=== PATIENT | female | born 1955 | race Caucasian/White ===

== ENCOUNTER 2021-09-26 20:43 | Emergency (ER) | payer MEDICARE, SELFPAY ==
[2021-09-26 20:48] VITALS: BP 154/91; PULSE 98; RESP 18; TEMP 37; O2SAT 96
[2021-09-26 20:52] VITALS: BP 154/91; PULSE 98; RESP 18; TEMP 37; O2SAT 96
[2021-09-26 22:30] VITALS: BP 138/85; PULSE 81; RESP 19; O2SAT 96
[2021-09-26 23:30] VITALS: BP 136/59; PULSE 72; RESP 14; O2SAT 97
[2021-09-26 23:32] LABS: D Dimer 0.71 ug/mL (<0.48)
[2021-09-27] MEDS: ENOXAPARIN 120 MG/0.8 ML SYRINGE SUB-Q (00:18)
[2021-09-27 00:31] VITALS: BP 140/55; PULSE 72; RESP 14; O2SAT 97
[2021-09-27 00:35] VITALS: BP 121/66
--- NOTE | 2021-09-27 02:02 | ED.EXTPRO ---
HPI - Extremity Problem General Chief complaint: Extremity Problem,Nontraumatic Stated complaint: LLE swelling Time Seen by Provider: 09/26/21 22:15 History of Present Illness HPI Narrative: Patient states that she had noted some swelling in her left leg earlier today when she noticed she could not fit it in her sandal, she is also endorsing some swelling to the back of her knee. Denies any recent trauma, no history of clots, not endorsing much pain. No swelling of the other leg. No chest pain or difficulty breathing. Related Data Allergies Allergy/AdvReac Type Severity Reaction Status Date / Time No Known Allergies Allergy Mild Verified 09/26/21 22:18 Review of Systems Review of Systems: All systems reviewed & are unremarkable except as noted in HPI and below PMFSH Family History Family History Other Family history of cardiovascular disease Family history of malignant neoplasm Social History Social History Smoking status: Never smoker Alcohol intake: current Exam Narrative: EXAMINATION OF ORGAN SYSTEMS/BODY AREAS: Constitutional: Vital signs per nursing GENERAL:[No acute distress, non-toxic appearing.] HEAD: Normal with no signs of head trauma. EYES: EOMI, conjunctiva normal ENT: Hearing grossly intact LUNGS: Nonlabored breathing. HEART: [Regular rate and rhythm] ABD: [Soft], nondistended EXT: Normal range of motion, small area of erythema and tenderness back of left knee, noticeable swelling of left lower extremity especially of the left foot compared to right. DP pulses intact SKIN: Described above NEURO: [Alert and oriented x 3. No gross focal sensory or strength deficits.] PSYCH: Normal affect Course Course Emergency Course: 66-year-old female presents here with swelling of left lower extremity, vital stable, exam shows small area of erythema to the left knee that looks consistent with a insect bite, and increased swelling to the left lower extremity most noticeably in the left foot. Differential includes cellulitis, DVT. D-dimer obtained here is mildly elevated, I have low concern for infection at this time without any fevers, no tenderness to palpation of the areas in question, she is given a shot of Lovenox here and should follow-up for DVT ultrasound in the morning. I updated her primary care doctor. Patient agreeable this plan. Vital Signs Vital signs: Vital Signs Temperature 98.6 F 09/26/21 20:48 Pulse Rate 98 09/26/21 20:48 Respiratory Rate 18 09/26/21 20:48 Blood Pressure 154/91 H 09/26/21 20:48 Pulse Oximetry 96 09/26/21 20:48 Temperature 98.6 F 09/26/21 20:52 Pulse Rate 72 09/27/21 00:31 Respiratory Rate 14 09/27/21 00:31 Blood Pressure 121/66 09/27/21 00:35 Pulse Oximetry 97 09/27/21 00:31 MDM - Extremity (Nontraumatic) Lab Data Labs: Lab Results 09/26/21 Range/Units 23:13 D-Dimer 0.71 H (<0.48) ug/mL Discharge Plan Discharge Clinical Impression: Lower extremity edema Patient Disposition: Home, Self-Care Condition: Stable Instructions: Antibiotic Form, Edema (ED) Follow-up/Referrals: Daniel Ruvalcaba MD [Primary Care Provider] -
== END 2021-09-27 00:35 | disposition home or self-care (01) ==
PROVIDERS: Emergency Provider Emergency Medicine; PCP Family Medicine
DX: R60.0 Localized edema (principal)
CPT/HCPCS: 36415; 85380; 96372; 99283; J1650

== ENCOUNTER 2021-09-27 07:35 | Outpatient (CLI) | payer MEDICARE, SELFPAY ==
--- NOTE | ~2021-09-27 | US_ITS ---
EXAMINATION: US venous doppler [facility] DATE: 09/27/2021 09:01 INDICATION: Left lower limb swelling TECHNIQUE: Vela scale images without and with compression and Doppler images of the left lower extrem ity veins were obtained. COMPARISON: None FINDINGS: The left common femoral vein, profunda femoral vein, femoral vein, popliteal vein, peroneal trunk, posterior tibial veins, and greater saphenous vein are patent. IMPRESSION: 1. Patent left lower extremity veins. No evidence of deep venous thrombosis. Reviewed, dictated and finalized at location A.
== END 2021-09-27 07:36 | disposition home or self-care (01) ==
PROVIDERS: PCP Family Medicine; Visit Provider Family Medicine
DX: R22.42 Localized swelling, mass and lump, left lower limb (principal)
CPT/HCPCS: 93971

== ENCOUNTER → 2021-10-02 12:17 | Outpatient (CLI) | payer MEDICARE, SELFPAY ==
--- NOTE | ~2021-10-02 | XR_ITS ---
EXAMINATION: XR hip LT min 2V DATE: 10/02/2021 13:03 INDICATION: Left hip pain. TECHNIQUE: 2 views of left hip were obtained. COMPARISON: None. FINDINGS: Bone alignment is normal. No fracture. There is severe left hip osteoarthritis. IMPRESSION: 1. Severe left hip osteoarthritis. Reviewed, dictated and finalized at location B.
== END ==
PROVIDERS: PCP Family Medicine; Visit Provider Family Medicine
DX: M16.12 Unilateral primary osteoarthritis, left hip (principal)
CPT/HCPCS: 73502

== ENCOUNTER → 2021-12-04 12:23 | Outpatient (CLI) | payer MEDICARE, SELFPAY ==
--- NOTE | ~2021-12-04 | MM_ITS ---
EXAMINATION: MM screening amado BI w adia HISTORY: Screening TECHNIQUE: Craniocaudal and mediolateral oblique 3-D tomosynthesis images were obtained and synthetic 2-D images were generated. CAD analysis was submitted and interpreted. COMPARISON: Comparison to multiple prior studies sequentially, with oldest reviewed study dated 02/06. BREAST PARENCHYMAL COMPOSITION: Breast composed of scattered areas of fibroglandular density FINDINGS: There is no evidence of suspicious mass, calcification, or architectural distortion to sugg est malignancy in either breast. There has been no suspicious interval change. IMPRESSION: 1. No mammographic evidence of malignancy. 2. Recommend routine screening mammography in one year. BI-RADS Category 1: Negative Reviewed, dictated and finalized at location A.
== END ==
PROVIDERS: PCP Family Medicine; Visit Provider Family Medicine
DX: Z12.31 Encounter for screening mammogram for malignant neoplasm of breast (principal)
CPT/HCPCS: 77063; 77067

== ENCOUNTER 2022-04-14 07:00 | Outpatient (NON) | payer MEDICARE, SELFPAY | END 2022-04-14 07:01 | disposition home or self-care (01) | PROVIDERS: PCP Family Medicine; Visit Provider Internal Medicine Gastroenterology | DX: Z12.11 Encounter for screening for malignant neoplasm of colon (principal); K63.5 Polyp of colon | CPT/HCPCS: 88305 ==

== ENCOUNTER 2022-04-14 08:51 | Day surgery (SDC) | payer MEDICARE, SELFPAY ==
[2022-03-28 11:21] VITALS: BMI 40.3
[2022-04-14 09:35] VITALS: BP 154/83; PULSE 95; RESP 18; TEMP 37.2; O2SAT 97
[2022-04-14] MEDS: LACTATED RINGERS 1,000 ML 150 ML IV CONT (09:49)
--- NOTE | 2022-04-14 09:50 | P.PNAN_ITS ---
Anes - Initial Pre Proc Eval Procedure: Operation Date: 04/14/22 10:45 Proposed Procedures p Screening Colonoscopy - Ethan Ackerman MD Date/Time: 04/14/22 09:50 Surgeon: Ethan Ackerman MD Pre Op Diagnosis: neoplasm screening Patient Data Age: 66 Gender: F Height: 1.73 m Weight: 118.4 kg Last Vital Signs Temp 37.2 C 04/14/22 09:35 Pulse 95 04/14/22 09:35 Resp 18 04/14/22 09:35 BP 154/83 H 04/14/22 09:35 Pulse Ox 97 04/14/22 09:35 O2 Del Method Room Air 04/14/22 09:35 Allergies Allergy/AdvReac Type Severity Reaction Status Date / Time No Known Allergies Allergy Mild Verified 04/14/22 09:35 Home Medications Medication Instructions Recorded Confirmed Type sodium,potassium,mag sulfates 17.5 See Rx Instructions PO .COMPLEX 03/25/22 04/14/22 Rx gram-3.13 gram-1.6 gram oral soln #354 mL (Suprep Bowel Prep Kit) fexofenadine 60 mg tablet 60 mg PO Q12H 03/28/22 04/14/22 History meloxicam 15 mg tablet 15 mg PO DAILY 04/14/22 04/14/22 History Patient hx anesthesia problems: none Family hx anesthesia problems: none Results Review: All pre-operative results and documents have been reviewed as part of the pre- operative evaluation. [facility] Past Medical History Medical History (Updated 04/14/22 @ 09:50 by Johnathon Rudolph MD) Morbid obesity Surgical History Surgical History (Updated 04/14/22 @ 09:51 by Johnathon Rudolph MD) History of cholecystectomy History of tubal ligation Hx of tonsillectomy Family History Family History Other Family history of cardiovascular disease Family history of malignant neoplasm Social History Social History Smoking status: Never smoker Alcohol intake: former Substance use: never Substance use type: does not use Living arrangements: alone Spiritual care concerns: No Anes - Eval Final PreProcedure Day of Procedure 04/14/22 09:50 Patient weight: morbidly obese Heart: regular rate and rhythm Lungs: clear to auscultation Airway: Mallampati scale class II Neurological: alert and oriented Last oral intake: >/= 8 hours ASA classification: III Emergent: no Anesthetic plan: proceed Anesthesia type and monitoring: general GIVS and standard monitoring Results Review: All pre-operative results and documents have been reviewed as part of the pre- operative evaluation. Informed Consent: The patient's anesthetic plan and its attendant risks and benefits were discussed with the patient/family/POA. Questions were solicited and answers provided to the satisfaction of the patient/family/POA.
--- NOTE | 2022-04-14 10:07 | P.HP_ITS ---
History of Present Illness History of Present Illness Consent: Risks, benefits, and alternatives have been discussed and questions answered. Patient agrees to proceed with procedure. Chief complaint: neoplasm screening Narrative: Hayley Wong is a 66 year old female presents for screening colonoscopy. Patient's current weight appetite and bowel movements are normal. Patient denies abdominal pain. She has had no bleeding. Previous colonoscopy in 2007 was unremarkable. Her family history is noncontributory. Review of Systems Review of Systems: Review of systems noncontributory. [facility] Past Medical History Medical History (Updated 04/14/22 @ 10:08 by Ethan Ackerman MD) Morbid obesity Surgical History Surgical History (Updated 04/14/22 @ 09:51 by Johnathon Rudolph MD) History of cholecystectomy History of tubal ligation Hx of tonsillectomy Family History Family History Other Family history of cardiovascular disease Family history of malignant neoplasm Social History Social History Smoking status: Never smoker Alcohol intake: former Substance use: never Substance use type: does not use Living arrangements: alone Spiritual care concerns: No Meds Home Medications and Allergies Home Medications Medication Instructions Recorded Confirmed Type sodium,potassium,mag sulfates 17.5 See Rx Instructions PO .COMPLEX 03/25/22 04/14/22 Rx gram-3.13 gram-1.6 gram oral soln #354 mL (Suprep Bowel Prep Kit) fexofenadine 60 mg tablet 60 mg PO Q12H 03/28/22 04/14/22 History meloxicam 15 mg tablet 15 mg PO DAILY 04/14/22 04/14/22 History Allergies Allergy/AdvReac Type Severity Reaction Status Date / Time No Known Allergies Allergy Mild Verified 04/14/22 09:35 Vital Signs Vital Signs - 24 hr 04/14/22 09:35 Temperature 99 F Pulse Rate 95 Respiratory Rate 18 Blood Pressure 154/83 H Pulse Oximetry 97 Oxygen Delivery Room Air Exam Narrative: Physical exam reveals patient to be alert. Vital signs stable. HEENT exam is unremarkable. Patient is anicteric. Lungs are clear to auscultation and percussion. Heart is without murmur or extra sounds. Abdomen bowel sounds present soft nontender with no organomegaly. Digital external rectal exam is normal. Assessment and Plan Assessment and plan (1) Encounter for screening colonoscopy: Code(s): Z12.11 - Encounter for screening for malignant neoplasm of colon Status: Acute Assessment and Plan: Patient presents for screening colonoscopy. She appears to be at average risk for colon polyps.
[2022-04-14 10:37] VITALS: BP 125/60; PULSE 83; RESP 18; O2SAT 95
[2022-04-14 10:47] VITALS: BP 121/60; PULSE 87; RESP 20; O2SAT 98
--- NOTE | 2022-04-14 10:55 | WPDANESPN ---
Anes - Prog Note Post-Op Date/Time: 04/14/22 10:55 Cardiovascular status: normal Respiratory status: normal Airway patency: baseline Mental status: baseline Post-Op hydration status: normal Vital Signs: Last Vital Signs Temp 37.2 C 04/14/22 09:35 Pulse 87 04/14/22 10:47 Resp 20 04/14/22 10:47 BP 121/60 04/14/22 10:47 Pulse Ox 98 04/14/22 10:47 O2 Del Method Room Air 04/14/22 10:47 Pain Score (VAS): 0/10 I/O: Intake & Output 04/13/22 04/14/22 04/14/22 23:59 07:59 15:59 Intake Total 300 Balance 300 Patient Feedback: Patient satisfied with anesthetic care.
[2022-04-14 10:57] VITALS: BP 130/64; PULSE 73; RESP 20; O2SAT 98
== END 2022-04-14 11:25 | disposition home or self-care (01) ==
PROVIDERS: PCP Family Medicine; Visit Provider Internal Medicine Gastroenterology
PROC: 0DJD8ZZ Inspection of Lower Intestinal Tract, Via Natural or Artificial Opening Endoscopic (ICD-10-PCS; CPT 45378; principal; 2022-04-14 10:45)
DX: Z12.11 Encounter for screening for malignant neoplasm of colon (principal)
CPT/HCPCS: 45385

== ENCOUNTER 2023-03-17 14:03 | Outpatient (CLI) | payer MEDICARE, SELFPAY ==
--- NOTE | ~2023-03-17 | MM_ITS ---
EXAMINATION: MM screening amado BI w adia HISTORY: Screening mammogram, family history of breast cancer in her mother. TECHNIQUE: Craniocaudal and mediolateral oblique 3-D tomosynthesis images were obtained and synthetic 2-D images were generated. CAD analysis was submitted and interpreted. COMPARISON: 12/04/2021, 02/17/2014, 02/16/2013 BREAST PARENCHYMAL COMPOSITION: There are scattered areas of fibroglandular density. FINDINGS: No suspicious mass, calcification, or architectural distortion are identified in either susan ast to suggest malignancy. There has been no suspicious interval change. IMPRESSION: 1. No mammographic evidence of malignancy. 2. Recommend routine screening mammography in one year. BI-RADS Category 1: Negative Reviewed, dictated and finalized at location A.
== END 2023-03-17 14:04 | disposition home or self-care (01) ==
LOC: CHSIMG 14:05
PROVIDERS: PCP Family Medicine; Visit Provider Family Medicine
DX: Z12.31 Encounter for screening mammogram for malignant neoplasm of breast (principal)
CPT/HCPCS: 77063; 77067

== ENCOUNTER 2023-03-26 13:40 | Outpatient (CLI) | payer MEDICARE, SELFPAY ==
--- NOTE | 2023-03-26 13:57 | ECG_ITS ---
Measurements Intervals [place] Rate: 80 P: 83 TN: 212 QRS: 29 QRSD: 96 T: 49 QT: 361 QTc: 418 Interpretive Statements SINUS RHYTHM WITH FIRST DEGREE AV BLOCK BASELINE WANDER- V1, V4 BORDERLINE ECG NO PREVIOUS ECG AVAILABLE FOR COMPARISON Electronically Signed On 03-26-2023 14:06:40 ASSISTANT CLINICAL DIRECTOR by Jeff Morris D.O.
[2023-03-26 14:43] LABS: Basophils Absolute Auto 0.1 K/mm3 (0.0-0.1); Eosinophils Absolute Auto 0.5 K/mm3 (0-0.3); Eosinophils Percent Auto 6.2 % (0-4.4); Hemoglobin 13.5 g/dL (12.0-15.0); Immature Granulocyte Absolute 0.02 K/mm3 (0.00-0.031); Immature Granulocyte Percent A 0.2 % (0-0.5); Lymphocytes Absolute Auto 3.42 K/mm3 (0.9-3.2); Lymphocytes Percent Auto 39.5 % (18.3-44.2); Mean Corpuscular HGB Conc 32.1 g/dl (32-36); Mean Corpuscular Hemoglobin 29.4 pg (26-34); Mean Corpuscular Volume 91.5 fl (80-100); Mean Platelet Volume 11.2 fl (7.4-10.4); Monocytes Absolute Auto 0.6 K/mm3 (0.1-0.6); Monocytes Percent Auto 6.7 % (2.6-8.5); Neutrophils Percent Auto 46.4 % (45.5-73.1); Platelet Count Result 308 k/mm3 (150-375); Red Blood Count 4.59 M/mm3 (4.2-5.4); Red Cell Distribution Width 14.1 % (11.5-14.5); White Blood Count 8.7 K/mm3 (4.5-10.0)
[2023-03-26 14:50] LABS: Anion Gap 9 mmol/L (8-16); Blood Urea Nitrogen 15 mg/dL (7-17); Calcium 9.1 mg/dL (8.4-10.2); Carbon Dioxide 26 mmol/L (22-30); Chloride 106 mmol/L (98-107); Estimated Glomerular Filt Rate > 60; Glucose 106 mg/dL (65-110); Potassium 3.9 mmol/L (3.4-5.0); Sodium 141 mmol/L (137-145)
== END 2023-03-26 13:41 | disposition home or self-care (01) ==
PROVIDERS: PCP Family Medicine; Visit Provider Nurse Practitioner Family
DX: R53.83 Other fatigue (principal); M16.12 Unilateral primary osteoarthritis, left hip; I44.0 Atrioventricular block, first degree
CPT/HCPCS: 36415; 80048; 85025; 93005

== ENCOUNTER 2023-05-26 09:48 | Outpatient (CLI) | payer MEDICARE, SELFPAY ==
[2023-05-26 11:04] LABS: Basophils Absolute Auto 0.1 K/mm3 (0.0-0.1); Basophils Percent Auto 1.1 % (0.2-1.2); Eosinophils Absolute Auto 0.3 K/mm3 (0-0.3); Eosinophils Percent Auto 5.1 % (0-4.4); Hematocrit 43.8 % (37.0-47.0); Hemoglobin 13.6 g/dL (12.0-15.0); Immature Granulocyte Absolute 0.01 K/mm3 (0.00-0.031); Immature Granulocyte Percent A 0.2 % (0-0.5); Lymphocytes Absolute Auto 2.66 K/mm3 (0.9-3.2); Lymphocytes Percent Auto 42.6 % (18.3-44.2); Mean Corpuscular HGB Conc 31.1 g/dl (32-36); Mean Corpuscular Hemoglobin 29.1 pg (26-34); Mean Corpuscular Volume 93.6 fl (80-100); Mean Platelet Volume 10.4 fl (7.4-10.4); Monocytes Absolute Auto 0.4 K/mm3 (0.1-0.6); Monocytes Percent Auto 6.9 % (2.6-8.5); Neutrophils Absolute Auto 2.8 K/mm3 (1.3-6.7); Neutrophils Percent Auto 44.1 % (45.5-73.1); Platelet Count Result 285 k/mm3 (150-375); Red Blood Count 4.68 M/mm3 (4.2-5.4); Red Cell Distribution Width 13.4 % (11.5-14.5); White Blood Count 6.2 K/mm3 (4.5-10.0)
[2023-05-26 11:12] LABS: Appearance Urine Cloudy (Clear); Bacteria Urine 2+ /hpf; Bilirubin Urine Negative (Negative); Blood Urine Negative (Negative); Color Urine Yellow (Yellow); Glucose Urine UA Negative (Negative); Ketones Urine Negative (Negative); Leukocyte Esterase Ur 3+ LEU/UL (Negative); Nitrate Urine Negative (Negative); Non Pathogenic Casts 0-2; Protein Urine Negative (Negative); RBC Urine 0-2 /hpf (0-2); Squamous Epithelial Cell Urine Few /hpf (Few); WBC Urine 21-50 /hpf
[2023-05-26 11:14] LABS: Urine Cotinine NEGATIVE
[2023-05-26 11:15] LABS: INR 0.9; Prothrombin Time 12.7 Seconds (11.1-14.7)
[2023-05-26 11:27] LABS: Add Urine Microscopic? YES
[2023-05-26 11:43] LABS: Hemoglobin A1C 5.9 % (<5.7)
== END 2023-05-26 09:49 | disposition home or self-care (01) ==
PROVIDERS: PCP Family Medicine; Visit Provider Orthopaedic Surgery
DX: Z01.812 Encounter for preprocedural laboratory examination (principal); M16.12 Unilateral primary osteoarthritis, left hip
CPT/HCPCS: 80307; 81001; 83036; 85025; 85610; 85730; 87077; 87081; 87086; 87186

== ENCOUNTER 2023-06-09 01:54 | Day surgery (SDC) | payer MEDICARE, SELFPAY ==
[2023-05-26 10:08] VITALS: BP 147/64; PULSE 80; RESP 16; TEMP 37.3; O2SAT 97; BMI 35.6
--- NOTE | 2023-05-26 10:22 | PC.NURSE ---
Report to the Outpatient Waiting Room, entrance under the green pavilion located off [facility], at time __8:30AM on date __06/09/23 . Planned Procedure Time: __10:30AM . Time changes happen often and if your time is changed the preop area will call you the afternoon before. - You and your visitor will be asked to self-screen and do not enter if you have any COVID symptoms. - A mask is optional within the hospital at this time. Patients may have clear liquids (water, carbonated beverages, clear teas, apple juice) until 3 hours prior to surgery with a maximum of 20 ounces. - No food from midnight until time of surgery. Take the following medications with a SIP of water the morning of surgery: __TRAMADOL NEEDED DO NOT STOP ANY OF YOUR OTHER PRESCRIPTION MEDICATIONS PRIOR TO SURGERY ?EXCEPT THE FOLLOWING Medications to discontinue per physician ____HOLD ALL VITAMINS/SUPPLEMENTS 7 DAYS PRE-OP PER DR STEVENS Date to take last dose___06/01/23 Please no make-up, nail armenian, hairspray, perfume, deodorant, or body powder the day of surgery. No jewelry (including any body piercings) or valuables the day of surgery, leave them at home. Please take a shower or bath the night before, or the morning of, surgery with an antibacterial soap. Wear comfortable, loose fitting clothing. Children are encouraged to wear pajamas. - Jewelry must be removed prior to entering the operating room. Rings and piercings that are not removed may be cut off. - The hospital will not accept responsibility for valuables. - Please leave all valuables, including medications, at home the day of surgery. If you are going home after surgery, a licensed hydraulic lift driver must drive you home. - NO public transportation without another adult if you receive anesthesia. - We recommend that an adult stay with you for 24 hours following discharge. - We also recommend that you do not drive, make important decision, drink alcoholic beverages, or take any drugs that were not prescribed by your health care provider for at least 24 hours after your discharge time. Follow any additional instructions given to you from your surgeon. If you or anyone in your household have experienced Covid symptoms in the past week, please notify your surgeon or the nurse liaison at the phone number below for possible testing. Telephone instructions given to __PATIENT___and asked if any additional questions and then verbalized understanding. Patient advised to call surgeon office or pre surgery nurse liaison [phone] if any additional questions.
--- NOTE | 2023-06-08 15:59 | WPDANESEPPF ---
Anes - Initial Pre Proc Eval Procedure: Operation Date: 06/09/23 10:30 Proposed Procedures p Left Total Hip Arthroplasty - Dayne Paige MD Date/Time: 06/08/23 15:59 Surgeon: Dayne Paige MD Pre Op Diagnosis: Left Hip DJD Patient Data Age: 67 Gender: F Height: 1.7 m Weight: 103.3 kg Last Vital Signs Temp 37.3 C 05/26/23 10:08 Pulse 80 05/26/23 10:08 Resp 16 05/26/23 10:08 BP 147/64 H 05/26/23 10:08 Pulse Ox 97 05/26/23 10:08 O2 Del Method Room Air 05/26/23 10:08 Allergies Allergy/AdvReac Type Severity Reaction Status Date / Time No Known Allergies Allergy Mild Verified 06/09/23 09:25 Home Medications Medication Instructions Recorded Confirmed Type L.acid,leyla-B.bifid,long 70 mg (5 1 tablet PO DAILY 11/10/22 06/09/23 History billion cell) tablet,delayed release (Probiotic Colon Support) ascorbic acid (vitamin C) 500 mg 500 mg PO DAILY 11/10/22 06/09/23 History tablet calcium carbonate 600 mg calcium 600 mg PO DAILY 11/10/22 06/09/23 History (1,500 mg) tablet cholecalciferol (vitamin D3) 25 25 mcg PO DAILY 11/10/22 06/09/23 History mcg (1,000 unit) capsule crzdjlxe-suhu-zpct 8 mg-folic 400 1 tablet PO DAILY 12/10/22 06/09/23 History mcg-K 50 mcg-lutein 300 mcg tablet (Centrum Silver Women) tramadol 50 mg tablet 50 mg PO Q6H PRN pain #30 tabs 04/30/23 06/09/23 Rx chlorhexidine gluconate 4 % 1 applic topical ONCE #237 mL 05/26/23 06/09/23 Rx topical liquid (Hibiclens) fexofenadine 180 mg tablet 180 mg PO DAILY PRN Allergy 05/26/23 06/09/23 History Symptoms Patient hx anesthesia problems: none Family hx anesthesia problems: none Results Review: All pre-operative results and documents have been reviewed as part of the pre-operative evaluation. [facility] Past Medical History Medical History Abnormal liver function tests Obesity (BMI 30.0-34.9) Osteoarthritis of left hip Osteoarthritis of right knee Pure hypercholesterolemia, unspecified Surgical History Surgical History History of cholecystectomy History of tubal ligation Hx of tonsillectomy Family History Family History Other Family history of cardiovascular disease Family history of malignant neoplasm Social History Social History Smoking status: Never smoker Alcohol intake: former Alcohol use details: SOCIAL DRINKER IN PAST, NONE NOW Substance use: never Substance use type: does not use Lack of Transportation: No Lack of Food: Never True Current Housing: I Have Housing Concerned About Future Housing: No Difficulty Paying Gas/Electric Bills: No Difficulty Paying for Meds: No Currently Unemployed: No Education: Associate Degree Difficulty w/ Childcare or Family Care: No Living arrangements: alone Occupation/Education: occupation Gender identity (if verbalized by the patient): Female Sexual Orientation (if Verbalized by the Patient): Straight or Heterosexual Spiritual care concerns: No Anes - Eval Final PreProcedure Day of Procedure 06/08/23 15:59 Patient weight: obese Heart: regular rate and rhythm Lungs: clear to auscultation Airway: Mallampati scale class II Neurological: alert and oriented Last oral intake: >/= 8 hours ASA classification: II Emergent: no Anesthetic plan: proceed Anesthesia type and monitoring: general ETT and standard monitoring Results Review: All pre-operative results and documents have been reviewed as part of the pre-operative evaluation. Informed Consent: The patient's anesthetic plan and its attendant risks and benefits were discussed with the patient/family/POA. Questions were solicited and answers provided to the satisfaction of the patient/family/POA.
[2023-06-09] VITALS (12 sets, daily range): BP systolic 124–151; BP diastolic 51–69; PULSE 67–89; RESP 12–24; TEMP 35.9–37; O2SAT 95–100
--- NOTE | ~2023-06-09 | XR_ITS ---
EXAMINATION: XR hip LT min 2V DATE: 06/09/2023 15:10 INDICATION: Status post left total hip arthroplasty. TECHNIQUE: Anteroposterior and cross-table lateral views of the left hip were obtained. COMPARISON: None. FINDINGS: Noncemented left total hip arthroplasty which appears well seated in near-anatomic alignment. No frac ture. The acetabular component is affixed with at least a single screw. Soft tissues are unremarkable . IMPRESSION: 1. Expected appearance post left total hip arthroplasty. Reviewed, dictated and finalized at location A. BUILDER HELPER
--- NOTE | 2023-06-09 07:14 | WPDHPUPDATE1 ---
History and Physical Update Update Date/Time: 06/09/23 07:14 History and Physical has been reviewed, including an updated exam of the patient. There are NO changes in the patient's condition. Risks, benefits, and alternatives have been discussed and questions answered. Patient agrees to proceed with procedure.
[2023-06-09] MEDS: ACETAMINOPHEN 500 MG TABLET 1000 MG PO (09:00)
[2023-06-09] MEDS: LACTATED RINGERS 1,000 ML 30 ML IV CONT ×2 (09:00→14:52)
[2023-06-09] MEDS: ceFAZolin 2 GM/D5W 50 ML 2 GM/50 ML BAG IVPB ×2 (12:28→21:03)
[2023-06-09] MEDS: TRANEXAMIC ACID 1,000 MG/10 ML AMPUL 1000 MG IV PUSH (14:01)
--- NOTE | 2023-06-09 15:00 | W.PM.PROC2 ---
Procedure Note - Detailed Date of Procedure 06/09/23 Pre-op Diagnosis Left Hip DJD Post-op Diagnosis Same Procedure Performed L LYNDA Surgeon Dayne Paige MD Anesthesia General Description of Procedure THE PATIENT WAS TAKEN TO THE OPERATING ROOM IN STABLE CONDITION AND WAS PLACED IN THE LATERAL DECUBITUS AND THE LEFT LOWER EXTREMITY WAS PREPPED AND DRAPED IN THE STERILE FASHION. INCISION WAS MADE IN THE POSTERIOR LATERAL SIDE OF THE HIP, DOWN TO THE FASCIA LAYER. THE FASCIA WAS INCISED. THE HIP WAS EXPOSED. THE SHORT EXTERNAL ROTATORS WERE EXPOSED. THE SCIATIC NERVE WAS IDENTIFIED. INCISION WAS MADE THROUGH THE SHORT EXTERNAL ROTATORS AND THE CAPSULE OF THE HIP JOINT. THE HIP WAS DISLOCATED. AN OSTEOTOMY WAS MADE TO THE FEMORAL NECK ABOUT 1 CM PROXIMAL TO THE LESSER TROCHANTER. THE ACETABULUM WAS EXPOSED. THERE WAS SEVERE DJD SEEN. BEGINNING WITH A 44 REAMER THE ACETABULUM WAS REAMED TO 49 MM. A 50 MM TRIAL WAS PLACED IN 35 DEG OF ABDUCTION AND ANTEVERSION WAS IN ALIGNMENT WITH THE TRANS ACETABULAR LIGAMENT. THE FIT WAS EXCELLENT. THE TRIAL WAS REMOVED. A 50 MM BIOMET G7 COMPONENT WAS THEN TAPPED IN TO PLACE IN 35 DEG OF ABDUCTION AND ANTEVERSION IN ALIGNMENT WITH THE TRANSVERSE ACETABULAR LIGAMENT. THE FIT WAS EXCELLENT. THE ACETABULAR LINER WAS PLACED AND CHECKED FOR STABILITY. NEXT THE FEMUR WAS PREPARED WITH INITIAL CANAL FINDER THEN SEQUENTIAL BROACHING WITH A TAPERLOC HIP SYSTEM, UNTIL A 10 BROACH FIT WELL IN 15 OF ANTEVERSION. A 0 STANDARD OFFSET NECK WITH 36 MM HEAD TRIAL WAS PLACED. THE SHUCK TEST WAS EXCELLENT AND THE STABILITY IN FLEXION AND ROTATION WAS EXCELLENT. LEG LENGTHS WERE GROSSLY EQUAL. TRIALS WERE REMOVED. A BIOMET TAPERLOC 10 STEM WAS PLACED WITH A STANDARD OFFSET NECK THE FIT WAS EXCELLENT IN 15 DEG OF ANTEVERSION. A 0 CERAMIC 36 MM FEMORAL CERAMIC HEAD WAS PLACED. THE HIP WAS TRIALED AND THE STABILITY WAS EXCELLENT WERE THE LEG LENGTHS AND THE SHUCK TEST. THE WOUND WAS IRRIGATED WITH STERILE BETADINE AND WATER FOR 3 MIN. THEN WASHED AGAIN. THE CAPSULE AND THE EXTERNAL ROTATORS WERE APPROXIMATED WITH NUMBER 1 VICRYL. THE FASCIA WITH No 2 QUIL AND THE SUB CUTANEOUS LAYER WITH 2-0 ABSORBABLE SUTURE WITH A RUNNING 3-0 SUBCUTICULAR LAYER WELL. DERMABOND WAS PLACED AND STERILE DRESSING WAS APPLIED. PATIENT WAS PLACED BACK ON TO THE SUPINE POSITION AND WAS EXTUBATED Estimated Blood Loss 100 Complications No immediate complications Condition Stable Disposition PACU
--- NOTE | 2023-06-09 16:38 | ADMGEN ---
This patient, Hayley Wong, was admitted to [facility] Surg Room 321-02. Patient/family oriented to hospital policies and general routines including ID bracelet, bed and alarms, visiting hours, pain management, procedures, bathroom and other care routines, personal items, smoking policy, room service/diet, and visiting hours. Information on how to activate the Rapid Response Team has been discussed. Patient/Family are encouraged to report perceived risks to care and to ask questions if they do not understand what they are told or what they should do.
[2023-06-09] MEDS: SODIUM CHLORIDE 0.9% IV 1,000 ML 125 ML IV CONT (17:59)
[2023-06-09] MEDS: KETOROLAC 15 MG/ML VIAL (*BKC) IV PUSH (18:00)
[2023-06-09] MEDS: SENNA/DOCUSATE SODIUM TABLET 2 TAB PO (18:00)
[2023-06-09] MEDS: HYDROcodone/acetaminophen (*CRX) 7.5-325 MG TABLET 1 TAB PO (20:59)
[2023-06-09] MEDS: FAMOTIDINE 20 MG TABLET PO (20:59)
[2023-06-09] MEDS: ASPIRIN 325 MG ENTERIC TABLET PO (20:59)
[2023-06-09] MEDS: PROPARACAINE HCL 0.5% 15 ML OPHTH SOLN 1 DROP EACH EYE (21:01)
[2023-06-09] MEDS: DICLOFENAC SODIUM 0.1% OPHTH SOLN 2.5 ML BOTTLE 1 DROP EACH EYE (21:45)
[2023-06-10] MEDS: KETOROLAC 15 MG/ML VIAL (*BKC) IV PUSH ×3 (00:09→11:35)
[2023-06-10 00:25] VITALS: BP 152/62; PULSE 64; RESP 16; TEMP 36.9; O2SAT 93
[2023-06-10] MEDS: HYDROcodone/acetaminophen (*CRX) 7.5-325 MG TABLET 1 TAB PO (05:44)
[2023-06-10] MEDS: DICLOFENAC SODIUM 0.1% OPHTH SOLN 2.5 ML BOTTLE 1 DROP EACH EYE ×2 (05:45→13:06)
[2023-06-10] MEDS: ceFAZolin 2 GM/D5W 50 ML 2 GM/50 ML BAG IVPB ×2 (05:47→12:10)
[2023-06-10 05:56] VITALS: BP 138/62; PULSE 63; RESP 18; TEMP 36.8; O2SAT 94
[2023-06-10 06:31] LABS: Basophils Percent Auto 0.3 % (0.2-1.2); Eosinophils Percent Auto 0.3 % (0-4.4); Hematocrit 35.5 % (37.0-47.0); Hemoglobin 11.1 g/dL (12.0-15.0); Immature Granulocyte Absolute 0.06 K/mm3 (0.00-0.031); Immature Granulocyte Percent A 0.5 % (0-0.5); Lymphocytes Absolute Auto 1.92 K/mm3 (0.9-3.2); Lymphocytes Percent Auto 16.6 % (18.3-44.2); Mean Corpuscular HGB Conc 31.3 g/dl (32-36); Mean Corpuscular Volume 92.7 fl (80-100); Mean Platelet Volume 10.4 fl (7.4-10.4); Monocytes Absolute Auto 0.9 K/mm3 (0.1-0.6); Monocytes Percent Auto 7.3 % (2.6-8.5); Neutrophils Absolute Auto 8.7 K/mm3 (1.3-6.7); Platelet Count Result 248 k/mm3 (150-375); Red Blood Count 3.83 M/mm3 (4.2-5.4); Red Cell Distribution Width 13.2 % (11.5-14.5); White Blood Count 11.6 K/mm3 (4.5-10.0)
[2023-06-10 06:48] LABS: Anion Gap 5 mmol/L (8-16); Blood Urea Nitrogen 20 mg/dL (7-17); Calcium 8.1 mg/dL (8.4-10.2); Carbon Dioxide 30 mmol/L (22-30); Chloride 101 mmol/L (98-107); Estimated CRCL calculation 81 ml/min; Estimated Glomerular Filt Rate > 60; Glucose 120 mg/dL (65-110); Potassium 4.1 mmol/L (3.4-5.0); Sodium 136 mmol/L (137-145)
[2023-06-10] MEDS: CHOLECALCIFEROL 1,000 UNITS TABLET 1000 UNITS PO (08:49)
[2023-06-10] MEDS: ASCORBIC ACID 500 MG TABLET PO (08:49)
[2023-06-10] MEDS: FAMOTIDINE 20 MG TABLET PO (08:49)
[2023-06-10] MEDS: SENNA/DOCUSATE SODIUM TABLET 2 TAB PO (08:56)
[2023-06-10] MEDS: ASPIRIN 325 MG ENTERIC TABLET PO (08:56)
[2023-06-10] MEDS: polyethylene glycoL 3350 17 GM POWD.PACK PO (08:56)
[2023-06-10 09:04] VITALS: BP 124/52; PULSE 70; RESP 18; TEMP 36.3; O2SAT 97
--- NOTE | 2023-06-10 09:27 | P.PNAN_ITS ---
Anes - Prog Note Post-Op Date/Time: 06/10/23 09:27 Cardiovascular status: normal Respiratory status: normal Airway patency: baseline Mental status: baseline Post-Op hydration status: normal Vital Signs: Last Vital Signs Temp 36.3 C L 06/10/23 09:04 Pulse 70 06/10/23 09:04 Resp 18 06/10/23 09:04 BP 124/52 L 06/10/23 09:04 Pulse Ox 97 06/10/23 09:04 O2 Del Method Room Air 06/09/23 16:56 O2 Flow Rate 8 06/09/23 15:05 Pain Score (VAS): 07/25 I/O: Intake & Output 06/09/23 06/10/23 06/10/23 23:59 07:59 15:59 Intake Total 990 50 500 Balance 990 50 500 Laboratory Tests 06/10/23 06:07 06/10/23 06:07 06/09/23 06/10/23 08:43 06:07 WBC 11.6 H RBC 3.83 L Hgb 11.1 L Hct 35.5 L MCV 92.7 MCH 29.0 MCHC 31.3 L RDW 13.2 Plt Count 248 MPV 10.4 Immature Gran % (Auto) 0.5 Neut % (Auto) 75.0 H Lymph % (Auto) 16.6 L [place] % (Auto) 7.3 Eos % (Auto) 0.3 Baso % (Auto) 0.3 Lymph # (Auto) 1.92 [place] # (Auto) 0.9 H Eos # (Auto) 0.0 Baso # (Auto) 0.0 Abs Immat Gran (auto) 0.06 H Absolute Neuts (auto) 8.7 H Absolute Nucleated RBC 0.0 Nucleated RBC % 0.0 Sodium 136 L Potassium 4.1 Chloride 101 Carbon Dioxide 30 Anion Gap 5 L BUN 20 H Creatinine 0.70 Estim Creat Clear Calc 81 Estimated GFR > 60 Glucose 120 H Calcium 8.1 L Blood Type A Positive Antibody Screen Negative Post-procedural complaints: none Patient Feedback: Patient satisfied with anesthetic care.
--- NOTE | 2023-06-10 13:05 | PM.PNORT ---
Progress Note: A&P Assessment and Plan (1) Osteoarthritis of left hip: Qualifiers: Osteoarthritis type: primary Qualified Code(s): M16.12 - Unilateral primary osteoarthritis, left hip Code(s): M16.12 - Unilateral primary osteoarthritis, left hip Status: Acute Assessment and Plan: POD 1 DOING WELL WITH GOOD PROGRESS WITH PT. OK TO DC HOME SHE WILL F/U IN 3 WEEKS. REVIEWED HIP PRECAUTIONS AND DVT PROPHYLAXIS Subjective Subjective Date/Time Seen: 06/10/23 13:05 Interval history: POD 1 DOING WELL. NO CALF PAIN. GOOD PROGRESS WITH PT Exam Extrem: Other: VSS AFEBRILE DRESSING DRY NV INTACT NEG HOMANS SIGN THIGH AND CALF SOFT NON TENDER Objective Data Vital Signs Vital Signs: Vital Signs - 24 hr 06/09/23 14:52 06/09/23 15:05 06/09/23 14:58 Temperature 36.7 C Pulse Rate 79 74 79 Respiratory Rate 12 13 13 Blood Pressure 124/59 L 128/63 129/60 Pulse Oximetry 100 100 100 Oxygen Delivery Simple Face Mask Simple Face Mask Simple Face Mask Oxygen Flow Rate 6 8 8 06/09/23 15:20 06/09/23 15:35 06/09/23 16:05 Temperature Pulse Rate 75 75 74 Respiratory Rate 15 12 24 H Blood Pressure 137/63 137/62 132/57 L Pulse Oximetry 97 100 96 Oxygen Delivery Room Air Room Air Room Air Oxygen Flow Rate 06/09/23 16:56 06/09/23 16:35 06/09/23 16:50 Temperature 35.9 C L 36.1 C L Pulse Rate 67 71 Respiratory Rate 18 16 Blood Pressure 132/51 L 132/59 L Pulse Oximetry 95 95 95 Oxygen Delivery Room Air Oxygen Flow Rate 06/09/23 18:19 06/09/23 21:34 06/10/23 00:25 Temperature 36.1 C L 37.0 C 36.9 C Pulse Rate 79 89 64 Respiratory Rate 18 18 16 Blood Pressure 151/62 H 143/60 H 152/62 H Pulse Oximetry 97 96 93 Oxygen Delivery Oxygen Flow Rate 06/10/23 05:56 06/10/23 09:04 06/10/23 10:59 Temperature 36.8 C 36.3 C L Pulse Rate 63 70 Respiratory Rate 18 18 Blood Pressure 138/62 124/52 L Pulse Oximetry 94 97 Oxygen Delivery Room Air Oxygen Flow Rate Intake/Output Intake/Output: Intake & Output 06/07/23 06/08/23 06/09/23 06/10/23 23:59 23:59 23:59 23:59 Intake Total 1040 600 Balance 1040 600 Meds/Results Medications: Active Medications Generic Name Dose Route Start Last Admin Trade Name Freq PRN Reason Stop Dose Admin Acetaminophen 650 mg 06/09/23 16:11 Acetaminophen 325 Mg Tablet PO Q6H PRN Mild Pain (1-3) or Fever Hydrocodone Bitart/Acetaminophen 1 tab 06/09/23 16:11 06/10/23 05:44 Hydrocodone/Acetaminophen (*Crx) 7.5-325 Mg Tablet PO 1 tab Q3H PRN Administration Pain Rated 4-6 Hydrocodone Bitart/Acetaminophen 2 tab 06/09/23 16:11 Hydrocodone/Acetaminophen (*Crx) 7.5-325 Mg Tablet PO Q6H PRN Pain Rated 7-10 Artificial Tears 1 drop 06/09/23 19:44 Artificial Tears Ophth Soln 15 Ml Bottle EACH EYE Q2H PRN Dry Eye(s) Ascorbic Acid 500 mg 06/10/23 09:00 06/10/23 08:49 Ascorbic Acid 500 Mg Tablet PO 500 mg DAILY JOSEPH Administration Aspirin 325 mg 06/09/23 21:00 06/10/23 08:56 Aspirin 325 Mg Enteric Tablet PO 325 mg Q12HR JOSEPH Administration Calcium Carbonate 600 mg 06/10/23 09:00 06/10/23 08:50 Calcium Carbonate (Tums) 500 Mg (200 Mg Elemental) BY MOUTH Not Given DAILY JOSEPH Diazepam 5 mg 06/09/23 16:11 Diazepam (*Crx) 5 Mg Tablet PO Q6H PRN Anxiety/Muscle Spasm Diclofenac Sodium 1 drop 06/09/23 22:00 06/10/23 05:45 Diclofenac Sodium 0.1% Ophth Soln 2.5 Ml Bottle EACH EYE 06/13/23 21:59 1 drop Q8HR JOSEPH Administration Famotidine 20 mg 06/09/23 21:00 06/10/23 08:49 Famotidine 20 Mg Tablet PO 20 mg Q12HR JOSEPH Administration Hydroxyzine HCl 50 mg 06/09/23 16:11 Hydroxyzine Hcl 25 Mg Tablet PO Q4H PRN Itching Cefazolin Sodium 2 gm in 50 mls @ 100 mls/hr 06/09/23 21:00 06/10/23 12:40 Ancef 2 Gm/D5w 50 Ml IVPB 06/10/23 13:29 Infused Q8H JOSEPH Infusion Ketorolac Tr
--- NOTE | 2023-06-10 13:07 | PM.DS ---
DS: Admitting Diagnosis Discharge Date 06/10/23 Admitting Diagnosis LEFT HIP DJD DS: Discharge Diagnosis Discharge Diagnosis (1) Osteoarthritis of left hip: Qualifiers: Osteoarthritis type: primary Qualified Code(s): M16.12 - Unilateral primary osteoarthritis, left hip Code(s): M16.12 - Unilateral primary osteoarthritis, left hip Status: Acute DS: Summary Hospital Course Reason for hospitalization: LEFT LYNDA Hospital Course: PATIENT WAS ADMITTED S/P TOTAL HIP ARTHROPLASTY FOR POSTOPERATIVE MEDICAL MANAGEMENT, PAIN CONTROL AND MOBILIZATION WITH PHYSICAL AND OCCUPATIONAL THERAPY. THE PATIENT PROGRESSED WELL WITH PT/OT. LABS AND VITALS REMAINED STABLE AND PAIN WELL CONTROLLED. THE PATIENT HAS BEEN CLEARED TO BE DISCHARGED HOME. FOLLOW UP APPOINTMENT SCHEDULED. DISCHARGE INSTRUCTIONS DISCUSSED AT LENGTH WITH THE PATIENT. MEDICATIONS REVIEWED. Status at Discharge Cognitive/behavioral status at discharge: STABLE Time Spent with Patient Time attestation: Total time spent providing and/or coordinating discharge services: DS: Data Data Completed and Pending Labs on day of discharge: Labs from last 24 hours 06/10/23 06:07 WBC 11.6 H RBC 3.83 L Hgb 11.1 L Hct 35.5 L MCV 92.7 MCH 29.0 MCHC 31.3 L RDW 13.2 Plt Count 248 MPV 10.4 Immature Gran % (Auto) 0.5 Neut % (Auto) 75.0 H Lymph % (Auto) 16.6 L [place] % (Auto) 7.3 Eos % (Auto) 0.3 Baso % (Auto) 0.3 Lymph # (Auto) 1.92 [place] # (Auto) 0.9 H Eos # (Auto) 0.0 Baso # (Auto) 0.0 Abs Immat Gran (auto) 0.06 H Absolute Neuts (auto) 8.7 H Absolute Nucleated RBC 0.0 Nucleated RBC % 0.0 Sodium 136 L Potassium 4.1 Chloride 101 Carbon Dioxide 30 Anion Gap 5 L BUN 20 H Creatinine 0.70 Estim Creat Clear Calc 81 Estimated GFR > 60 Glucose 120 H Calcium 8.1 L Procedures/Treatments: LEFT LYNDA Discharge Plan Discharge Patient Disposition: Home Health Service Discharge Instructions: Care Coordination: Patient to have [facility] for PT/OT eval and treat, and group home. They will contact you to schedule their first visit; their phone number is [phone] if you have any questions. HAYDE PAIGE M.D. [facility] [address] [place] [address] POST OPERATIVE DISCHARGE INSTRUCTIONS FOLLOWING TOTAL HIP REPLACEMENT SURGERY ? Your dressing will be changed prior to your discharge. You will be sent home with one additional dressing to be changed on post op day 7 by the home health RN. You may remove the dressing on post op day 14. Your incision was closed with dermabond, allow the dermabond to fall off naturally once your dressing is removed. Do not pull at the dermabond or disrupt incision healing. ? You may shower with your dressing but do not submerge in a bath tub. ? Do not drive or operate machinery until you are released by Dr. Paige. ? Do not walk without a walker for any reason until you are released by Dr. Paige. ? Continue to apply ice to the hip intermittently for additional pain relief. Protect your skin with a towel or pillow case. ? Unless otherwise instructed by Dr. Paige you me be weight bearing as tolerated with your walker. ? Continue to follow strict total hip replacement precautions. ? Your first post op appointment was sent to you via mail preoperatively. If you have any questions or are unable to make your appointment, please contact our office for scheduling questions. ? Your medications have been sent to your pharmacy. You have been sent home with pain medication. We have also sent you with a stool softener as narcotics can cause constipation. Please keep this in mind during your postoperative recovery. If you are not experiencing regular bowel movements, please contact our office for further instruction. ? Please contact our office with any questions regarding your hip at [phone]
== END 2023-06-10 15:30 | disposition home health service (06) ==
LOC: ANHSURGERY 08:30 → ANH3MEDSUR 16:13
PROVIDERS: PCP Family Medicine; Visit Provider Orthopaedic Surgery
PROC: (CPT 27130; principal; 2023-06-09 10:30)
DX: M16.12 Unilateral primary osteoarthritis, left hip (principal); E78.00 Pure hypercholesterolemia, unspecified; E66.9 Obesity, unspecified; Z68.35 Body mass index [BMI] 35.0-35.9, adult
CPT/HCPCS: 27130; 36415; 73502; 80048; 80307; 81001; 83036; 85025; 85610; 85730; 86850; 86900; 86901; 87077; 87081; 87086; 87186; 97110; 97116; 97161; 97165; 97530; 97535; A9270; C1713; C1776; J0171; J0690; J1100; J1170; J1885; J2250; J2270; J2405; J2704; J2795; J3010; J7030; J7120

== ENCOUNTER 2023-08-26 09:00 | Outpatient (RCR) | payer MEDICARE, SELFPAY ==
--- NOTE | 2023-07-13 16:26 | PTOPEVAL1 ---
Assessment and note entered by Carlo Hines, PT Evaluation Information Assessment Status Evaluation Diagnosis Left LYNDA, hip weakness Onset 06/09/23 Subjective Information Reports that she is mostly pain free and has not had to take any pain medication. She is still a little stiff in the AM but this is resolved with ambulation and mobility. No trouble sleeping at night. She lives in a split level home and has been using her cane around the home to help with mobility on stairs. Reported Pain Level Pain Score 0: Self Report Assessment PT Clinical Summary Patient making excellent early progress following home health stent. She is showing some ROM deficits in hip and lateral weakness indicated by gait and single leg activity. Will benefit from skilled therapy to improve gait independence, stability, and gross mobility for greater independence. Plan of Care Interventions Manual Therapy,Neuro Re-education,Therapeutic Activities,Therapeutic Exercise PT Services Indicated Yes Treatment Frequency and 2x/week for 10 visits Duration These treatments will address the objective and functional deficits as defined above. The patient will be advanced safely and appropriately in order for the patient to progress towards his/her prior level of function. Additional exercises will be introduced and as well as a comprehensive home exercise program upon discharge, if needed, ?to ensure carryover of functional gains achieved in the clinic. This treatment plan has been reviewed and agreement upon by the patient.
--- NOTE | 2023-07-13 16:26 | OPREHPOC ---
Outpatient Therapy Plan of Care This is a Multidisciplinary Plan of Care that may contain components documented by all disciplines (PT, OT, and ST.) PT Problem 1 PT Problem #1 Knowledge Deficit PT Goal 1 Goal [place] with HEP Target Visit 4 PT Problem 2 PT Problem #2 Pain PT Goal 1 Goal Report no pain with walking distances greater than 500 feet Target Visit 5 PT Problem 3 PT Problem #3 Impaired Gait PT Goal 1 Goal Ambulate independent of AD with even stride length bilaterally Target Visit 10 PT Goal 2 Goal Demonstrate ability to reciprocally climb stairs independent of AD Target Visit 10 PT Problem 4 PT Problem #4 Impaired Strength PT Goal 1 Goal Improve amanda hip flexion strength to 4+/5 to improve foot clearance bilaterally Target Visit 10 PT Goal 2 Goal Improve amanda hip abduction strength to 4/5 to improve lateral stability with ADLs Target Visit 10
--- NOTE | 2023-08-17 14:05 | PCPTNOTE ---
pt arrived 15 min early for today's reevaluation appt. She did not want to wait 15 minutes, so rescheduled the appt.
--- NOTE | 2023-08-26 09:46 | PTOPDC ---
Assessment and note entered by Sherry Berg, PT Discharge Information Assessment Status Discharge Diagnosis Left LYNDA, hip weakness Onset 06/09/23 Subjective Information therapy has been good--leg is stronger; still watching the hip precautions; is doing everything at home, but not bending over due to hip precautions; have been walking more, shopping; use cane when walking distances; have gym membership; is going to keep up with her exercises when done with therapy. saw the eye dr and going to have cataract surgery- -vision changes are starting to bother her. she agrees to discharge PT services. Reported Pain Level Pain Score 0: Self Report Additional Pain Score Comments no pain in R hip; R knee is giving her pain; sore in R hip with lie on L side Assessment PT Clinical Summary Priscila has received 10 PT sessions. She has improved in all areas since the eval: decrease pain to 0/10; LE functional scale self assessment from 55 to 38% limitation in activity level; gait from wheeled walker to cane or no device; has returned to her normal home and self care, except yard work; increase strength of R hip and indep with HEP. Continues to follow the THR precautions. The goals were met. Discharge PT services. She is to continue with the HEP. Plan of Care PT Services Indicated No
== END 2023-08-26 10:42 | disposition home or self-care (01) ==
LOC: ANHPT 09:00
PROVIDERS: PCP Family Medicine; Visit Provider Orthopaedic Surgery
DX: Z47.1 Aftercare following joint replacement surgery (principal); Z96.642 Presence of left artificial hip joint
CPT/HCPCS: 97110; 97112; 97116; 97140; 97161; 97530

== ENCOUNTER 2024-01-14 10:44 | Outpatient (CLI) | payer MEDICARE, SELFPAY ==
--- NOTE | 2024-01-14 11:11 | ECG_ITS ---
Test Date: 2024-01-14 11:27:08 Measurements Intervals [place] Rate: 67 P: -29 TN: 213 QRS: 37 QRSD: 97 T: 41 QT: 404 QTc: 429 Interpretive Statements SINUS RHYTHM WITH FIRST DEGREE AV BLOCK OTHERWISE WITHIN NORMAL LIMITS No previous ECG available for comparison Electronically Signed On 01-14-2024 13:27:46 CDT by Delta Bolanos M.D.
[2024-01-14 11:43] LABS: Basophils Absolute Auto 0.1 K/mm3 (0.0-0.1); Basophils Percent Auto 1.2 % (0.2-1.2); Eosinophils Absolute Auto 0.2 K/mm3 (0-0.3); Hematocrit 42.4 % (37.0-47.0); Hemoglobin 13.4 g/dL (12.0-15.0); Immature Granulocyte Absolute 0.01 K/mm3 (0.00-0.031); Immature Granulocyte Percent A 0.2 % (0-0.5); Lymphocytes Percent Auto 50.5 % (18.3-44.2); Mean Corpuscular HGB Conc 31.6 g/dl (32-36); Mean Corpuscular Hemoglobin 29.1 pg (26-34); Mean Platelet Volume 10.3 fl (7.4-10.4); Monocytes Absolute Auto 0.4 K/mm3 (0.1-0.6); Monocytes Percent Auto 7.7 % (2.6-8.5); Neutrophils Absolute Auto 2.1 K/mm3 (1.3-6.7); Neutrophils Percent Auto 36.4 % (45.5-73.1); Platelet Count Result 291 k/mm3 (150-375); Red Blood Count 4.61 M/mm3 (4.2-5.4); Red Cell Distribution Width 13.8 % (11.5-14.5); White Blood Count 5.7 K/mm3 (4.5-10.0)
[2024-01-14 11:47] LABS: Add Urine Microscopic? YES; Appearance Urine Clear (Clear); Bacteria Urine None Seen /hpf; Bilirubin Urine Negative (Negative); Blood Urine Negative (Negative); Color Urine Yellow (Yellow); Glucose Urine UA Negative (Negative); Ketones Urine Negative (Negative); Leukocyte Esterase Ur 2+ LEU/UL (Negative); Nitrate Urine Negative (Negative); Non Pathogenic Casts 0-2; Protein Urine Negative (Negative); RBC Urine 0-2 /hpf (0-2); Squamous Epithelial Cell Urine Few /hpf (Few); pH Urine 5.5 (5.0-9.0)
== END 2024-01-14 10:45 | disposition home or self-care (01) ==
LOC: ANHLAB 10:48
PROVIDERS: PCP Family Medicine; Visit Provider Orthopaedic Surgery
DX: E78.00 Pure hypercholesterolemia, unspecified (principal); I10 Essential (primary) hypertension; R53.83 Other fatigue; I44.0 Atrioventricular block, first degree
CPT/HCPCS: 36415; 81001; 85025; 87086; 93005

== ENCOUNTER 2024-02-02 11:27 | Outpatient (CLI) | payer MEDICARE, SELFPAY ==
[2024-02-02 13:24] LABS: Albumin Level 4.2 g/dL (3.5-5.1); Anion Gap 8 mmol/L (4-12); Blood Urea Nitrogen 16 mg/dL (7-17); Calcium 8.8 mg/dL (8.4-10.2); Carbon Dioxide 28 mmol/L (22-30); Chloride 103 mmol/L (98-107); Estimated Glomerular Filt Rate > 60; Glucose 110 mg/dL (65-110); INR 0.9; Potassium 4.4 mmol/L (3.4-5.0); Prothrombin Time 12.4 Seconds (11.1-14.7); Sodium 139 mmol/L (137-145)
[2024-02-02 13:25] LABS: Partial Thromboplastin Time 26.9 Seconds (22.3-36.8)
[2024-02-02 13:28] LABS: Urine Cotinine NEGATIVE
[2024-02-02 13:35] LABS: Hemoglobin A1C 5.8 % (<5.7)
[2024-02-02 14:46] LABS: MRSA (PCR) NOT DETECTED (NOT DETECTE)
== END 2024-02-02 11:28 | disposition home or self-care (01) ==
PROVIDERS: PCP Family Medicine; Visit Provider Orthopaedic Surgery
DX: Z01.812 Encounter for preprocedural laboratory examination (principal); M17.11 Unilateral primary osteoarthritis, right knee
CPT/HCPCS: 80048; 80307; 82040; 83036; 85610; 85730; 86850; 86900; 86901; 87641

== ENCOUNTER 2024-02-10 02:28 | Day surgery (SDC) | payer MEDICARE, SELFPAY ==
[2024-02-02 12:01] VITALS: BP 143/64; PULSE 70; RESP 16; TEMP 36.8; O2SAT 96; BMI 37.0
--- NOTE | 2024-02-02 12:17 | PC.NURSE ---
Report to the Outpatient Waiting Room, entrance under the green pavilion located off [facility], at time _8:30AM_ on date _02/10/24_. Planned Procedure Time: _10:30AM_.? Time changes happen often and if your time is changed the preop area will call you the afternoon before. - You and your visitor will be asked to self-screen and do not enter if you have any COVID symptoms. Please call surgeon if you need to reschedule. - A mask is optional within the hospital at this time. Patients may have clear liquids (water, carbonated beverages, clear teas, apple juice) until 3 hours prior to surgery with a maximum of 20 ounces. - No food from midnight until time of surgery and no smoking. Take only the following medications with a SIP of water on the morning of surgery: NONE DO NOT STOP ANY OF YOUR OTHER PRESCRIPTION MEDICATIONS PRIOR TO SURGERY EXCEPT THE FOLLOWING Medications to discontinue per physician HOLD ALL VITAMINS/SUPPLEMENTS 7 DAYS PRE-OP PER DR STEVENS Date to take last dose 02/02/24 Please no make-up, nail slovenian, hairspray, perfume, deodorant, or body powder the day of surgery.? No jewelry (including any body piercings) or valuables the day of surgery, leave them at home.? Please take a shower or bath the night before, or the morning of, surgery with an antibacterial soap.? Wear comfortable, loose fitting clothing.? - Jewelry must be removed prior to entering the operating room.? Rings and piercings that are not removed may be cut off. - The hospital will not accept responsibility for valuables.? - Please leave all valuables, including medications, at home the day of surgery. If you are going home after surgery, a licensed otr truck driver must drive you home.? - NO public transportation without another adult if you receive anesthesia. - We recommend that an adult stay with you for 24 hours following discharge. - We also recommend that you do not drive, make important decision, drink alcoholic beverages, or take any drugs that were not prescribed by your health care provider for at least 24 hours after your discharge time. Follow any additional instructions given to you from your surgeon. Telephone instructions given to ____PATIENT and asked if any additional questions and then verbalized understanding. Patient advised to call surgeon office or pre surgery nurse liaison [phone] if any additional questions.
[2024-02-10] VITALS (13 sets, daily range): BP systolic 114–149; BP diastolic 36–74; PULSE 63–94; RESP 12–19; TEMP 36–37.3; O2SAT 18–99
--- NOTE | ~2024-02-10 | XR_ITS ---
EXAMINATION: [id number] DATE: 02/10/2024 10:50 INDICATION: Postoperative evaluation following right total knee arthroplasty. TECHNIQUE: Anteroposterior and lateral views of the right knee were obtained. COMPARISON: None. FINDINGS: Right total knee arthroplasty without definitive patellar resurfacing which appears well seated and i n near anatomic alignment. Small enthesophytes along the proximal distal patella. No fractures identi fied. Anterior skin niko and expected postoperative subcutaneous and intra-articular gas. IMPRESSION: 1. Right total knee arthroplasty, negative for postoperative purposes. Reviewed, dictated and finalized at location A.
[2024-02-10] MEDS: ACETAMINOPHEN 500 MG TABLET 1000 MG PO (06:14)
[2024-02-10] MEDS: LACTATED RINGERS 1,000 ML 30 ML IV CONT ×2 (06:23→10:26)
--- NOTE | 2024-02-10 06:29 | WPDANESEPPF ---
Anes - Initial Pre Proc Eval Procedure: Operation Date: 02/10/24 07:30 Proposed Procedures p Right Total Knee Arthroplasty - Dayne Paige MD Date/Time: 02/10/24 06:29 Surgeon: Dayne Paige MD Pre Op Diagnosis: Rt Knee DJD Patient Data Age: 68 Gender: F Height: 1.71 m Weight: 107.5 kg Last Vital Signs Temp 36.6 C 02/10/24 06:24 Pulse 80 02/10/24 06:24 Resp 16 02/10/24 06:24 BP 134/56 L 02/10/24 06:24 Pulse Ox 97 02/10/24 06:24 O2 Del Method Room Air 02/10/24 06:24 Allergies Allergy/AdvReac Type Severity Reaction Status Date / Time No Known Allergies Allergy Mild Verified 02/10/24 06:07 Home Medications Medication Instructions Recorded Confirmed Type L.acid,leyla-B.bifid,long 70 mg (5 1 tablet PO DAILY 11/10/22 02/10/24 History billion cell) tablet,delayed release (Probiotic Colon Support) ascorbic acid (vitamin C) 500 mg 500 mg PO DAILY 11/10/22 02/10/24 History tablet sythfkdc-cojo-kihl 8 mg-folic 400 1 tablet PO DAILY 12/10/22 02/10/24 History mcg-K 50 mcg-lutein 300 mcg tablet (Centrum Silver Women) fexofenadine 180 mg tablet 180 mg PO DAILY PRN Allergy 05/26/23 02/10/24 History Symptoms calcium carb-ergocalciferol (vit 1 tablet PO DAILY 02/02/24 02/10/24 History D2) 600 mg calcium-200 unit tablet chlorhexidine gluconate 4 % 1 applic topical ONCE #237 mL 02/03/24 02/10/24 Rx topical liquid (Hibiclens) Patient hx anesthesia problems: none Family hx anesthesia problems: none Results Review: All pre-operative results and documents have been reviewed as part of the pre-operative evaluation. [facility] Past Medical History Medical History Abnormal liver function tests Obesity (BMI 30-39.9) Osteoarthritis of left hip Osteoarthritis of right knee Pure hypercholesterolemia, unspecified Surgical History Surgical History History of cholecystectomy History of tubal ligation Hx of tonsillectomy S/P total left hip arthroplasty DOS 06/09/23 Family History Family History Other Family history of cardiovascular disease Family history of malignant neoplasm Social History Social History Smoking status: Never smoker Alcohol intake: never Alcohol use details: SOCIAL DRINKER IN PAST, NONE NOW Substance use: never Substance use type: does not use Do You Feel Safe in your Home?: Yes Lack of Transportation: No Lack of Food: Never True Current Housing: Decline to Answer Concerned About Future Housing: No Difficulty Paying Gas/Electric Bills: No Difficulty Paying for Meds: No Currently Unemployed: No Education: Associate Degree Difficulty w/ Childcare or Family Care: No Living arrangements: alone Occupation/Education: occupation Gender identity (if verbalized by the patient): Female Sexual Orientation (if Verbalized by the Patient): Straight or Heterosexual Spiritual care concerns: No Anes - Eval Final PreProcedure Day of Procedure 02/10/24 06:29 Patient weight: obese Heart: regular rate and rhythm Lungs: clear to auscultation Airway: Mallampati scale class II Neurological: alert and oriented Last oral intake: >/= 8 hours ASA classification: II Emergent: no Anesthetic plan: proceed Anesthesia type and monitoring: general LMA and standard monitoring Results Review: All pre-operative results and documents have been reviewed as part of the pre-operative evaluation. Informed Consent: The patient's anesthetic plan and its attendant risks and benefits were discussed with the patient/family/POA. Questions were solicited and answers provided to the satisfaction of the patient/family/POA.
[2024-02-10] MEDS: TRANEXAMIC ACID 1,000MG/ISO100 1,000 MG/100 ML BAG 200 MG IVPB (07:09)
--- NOTE | 2024-02-10 07:15 | WPDHPUPDATE1 ---
History and Physical Update Update Date/Time: 02/10/24 07:15 History and Physical has been reviewed, including an updated exam of the patient. There are NO changes in the patient's condition. Risks, benefits, and alternatives have been discussed and questions answered. Patient agrees to proceed with procedure.
[2024-02-10] MEDS: ceFAZolin 2 GM/D5W 50 ML 2 GM/50 ML BAG IVPB ×3 (07:39→23:46)
[2024-02-10] MEDS: SODIUM CHLORIDE 0.9% IV 37.7 ML, MORPHINE SULFATE INJ (*CRX) 2 MG, ROPivacaine HCL 1% 2... INFILTRATE (07:48)
[2024-02-10] MEDS: TRANEXAMIC ACID 1,000 MG/10 ML AMPUL 1000 MG IV PUSH (09:17)
--- NOTE | 2024-02-10 09:45 | WPDANESPNB ---
Anes - Peripheral Nerve Block Date/Time: 02/10/24 09:45 I have discussed with the patient/family/POA the placement of a peripheral nerve block for post-operative pain management, including associated risks, benefits, complications, and side effects. Alternative methods of post-operative analgesia were detailed. Questions were solicited and answers provided to the satisfaction of the patient/family/POA. Time-Out: A pre-procedural Time-Out was completed immediately before starting the procedure and confirmed: Patient Identification, Site, Procedure, Patient Position and the Availability of Requisite Equipment. Clinical Indications: Acute post-operative pain management requested by the operative surgeon. Nerve Block Insertion Note Anes-nerve block: adductor canal right Patient position: supine Skin prep: chlorhexidine Needle: 22 gauge, stimulating, insulated echogenic needle. Needle length: 80 mm Technique: ultrasound Injectate: bupivacaine 0.5% with epi 5 mcg/ml (30cc) Observations: tolerated well Complications: none Procedure start time:: 714 Procedure end time:: 724
--- NOTE | 2024-02-10 10:30 | W.PM.PROC2 ---
Procedure Note - Detailed Date of Procedure 02/10/24 Pre-op Diagnosis Rt Knee DJD Post-op Diagnosis Same Procedure Performed [place] Surgeon Dayne Paige MD Anesthesia General Description of Procedure THE RIGHT KNEE WAS PREPPED AND DRAPED IN THE STERILE FASHION. THERE WAS A 20 DEGREE FLEXION CONTRACTURE. A MIDLINE SKIN INCISION WAS MADE. A MEDIAL PARAPATELLAR ARTHROTOMY WAS MADE. THE PATELLA WAS EVERTED. THERE WAS TRICOMPARTMENT DJD. AN INTRAMEDULLARY JASPREET WAS PLACED IN THE FEMUR. A DISTAL FEMORAL CUT WAS MADE IN 5 DEGREES OF VALGUS REMOVING APPROXIMATELY 11 MM OF BONE FROM THE DISTAL FEMUR. THE FEMUR WAS SIZED TO 65. A 65 FEMORAL CUTTING BLOCK WAS PLACED IN 3 DEGREES OF EXTERNAL ROTATION AND IN ALIGNMENT WITH JEN'S LINE AND THE TRANSEPICONDYLAR AXIS. ANTERIOR POSTERIOR AND CHAMFER CUTS WERE MADE. THE CUTS WERE EXCELLENT. NEXT AN INTRAMEDULLARY CUTTING GUIDE WAS PLACED IN THE TIBIA. A TRANS TIBIAL CUT WAS MADE ALONG THE LONG AXIS OF THE TIBIA. APPROXIMATELY 10 MM OF BONE WAS REMOVED FROM THE HIGH SIDE OF THE TIBIA. THE TIBIA WAS THEN PLANED TO A SMOOTH SURFACE. POSTERIOR FEMORAL OSTEOPHYTES WERE REMOVED FROM THE FEMORAL CONDYLES. A 71 TIBIAL TRIAL WAS PLACED IN ALIGNMENT WITH THE 1/3 MEDIAL ASPECT OF THE TIBIAL TUBERCLE. THEN A 65 FEMORAL TRIAL COMPONENT WAS PLACED. BOTH HAD EXCELLENT FITS. EVENTUALLY A 12 MM POLYETHYLENE TRIAL COMPONENT WAS PLACED. THE KNEE WAS TAKEN THROUGH A RANGE OF MOTION. THE KNEE CAME OUT TO FULL EXTENSION. THERE WAS NO ABNORMAL TILT TO THE PATELLA. THERE WAS GOOD A/P AND VARUS/VALGUS STABILITY. THERE WAS NO EXCESSIVE ROLL BACK WITH FLEXION. THE TRIAL COMPONENTS WERE REMOVED. THEN A 65 FEMORAL COMPONENT AND 71 TIBIAL COMPONENT WITH A 12 POLYETHYLENE COMPONENT WERE CEMENTED INTO PLACE. ONCE THE CEMENT WAS HARD THE KNEE WAS TAKEN THROUGH A ROM AGAIN AND FOUND TO BE STABLE WITH NO PATELLA TILT NO EXCESSIVE ROLL BACK WITH FLEXION AND GOOD STABILITY WITH COMPLETE AND FULL EXTENSION. THE KNEE WAS IRRIGATED WITH STERILE BETADINE AND WATER FOR ABOUT 3 MINUTES. THE BLEEDERS WERE CAUTERIZED. THE ARTHROTOMY WAS REPAIRED WITH NUMBER 1 VICRYL. THE SUB CUTANEOUS LAYER WITH 2-0 VICRYL AND THE SKIN WITH MICKI. THE WOUND WAS WASHED AND A STERILE DRESSING WAS APPLIED. PATIENT WAS EXTUBATED. Estimated Blood Loss -150.0 Pathology None sent Complications No immediate complications Condition Stable Disposition PACU
[2024-02-10] MEDS: fentaNYL CITRATE INJ (*CRX) 100 MCG/2 ML VIAL 25 MCG IV PUSH (11:16)
--- NOTE | 2024-02-10 11:58 | ADMGEN ---
This patient, Hayley Wong, was admitted to [facility] Surg Room 328-01. Patient/family oriented to hospital policies and general routines including ID bracelet, bed and alarms, visiting hours, pain management, procedures, bathroom and other care routines, personal items, smoking policy, room service/diet, and visiting hours. Information on how to activate the Rapid Response Team has been discussed. Patient/Family are encouraged to report perceived risks to care and to ask questions if they do not understand what they are told or what they should do.
[2024-02-10] MEDS: ASCORBIC ACID 500 MG TABLET PO (12:10)
[2024-02-10] MEDS: FAMOTIDINE 20 MG TABLET PO ×2 (12:10→20:41)
[2024-02-10] MEDS: polyethylene glycoL 3350 17 GM POWD.PACK PO (12:10)
[2024-02-10] MEDS: ASPIRIN 325 MG ENTERIC TABLET PO ×2 (12:10→20:41)
[2024-02-10] MEDS: SENNA/DOCUSATE SODIUM TABLET 2 TAB PO ×2 (12:11→16:21)
[2024-02-10] MEDS: KETOROLAC 15 MG/ML VIAL (*BKC) IV PUSH ×3 (12:11→23:45)
[2024-02-10] MEDS: HYDROmorphone HCL INJ (*CRX) 1 MG/ML SYR IV PUSH (12:12)
[2024-02-10] MEDS: ONDANSETRON INJ 4 MG/2 ML VIAL IV PUSH ×2 (12:12→16:24)
[2024-02-10] MEDS: SODIUM CHLORIDE 0.9% IV 1,000 ML 125 ML IV CONT (12:21)
[2024-02-10] MEDS: oxyCODONE/ACETAMINOPHEN (*CRX) 10-325 MG TABLET 1 TAB PO (16:28)
[2024-02-10] MEDS: IBUPROFEN IV 800 MG/200 ML 800 MG/200 ML BAG 400 MG IVPB (16:29)
[2024-02-11 00:54] VITALS: BP 108/42; PULSE 71; RESP 13; TEMP 37.1; O2SAT 97
[2024-02-11 05:24] VITALS: BP 125/46; PULSE 72; RESP 16; TEMP 36.5; O2SAT 97
[2024-02-11] MEDS: KETOROLAC 15 MG/ML VIAL (*BKC) IV PUSH ×2 (05:45→12:37)
[2024-02-11 07:47] LABS: Anion Gap 4 mmol/L (4-12); Blood Urea Nitrogen 18 mg/dL (7-17); Calcium 7.9 mg/dL (8.4-10.2); Carbon Dioxide 27 mmol/L (22-30); Chloride 102 mmol/L (98-107); Estimated CRCL calculation 82 ml/min; Estimated Glomerular Filt Rate > 60; Glucose 110 mg/dL (65-110); Potassium 3.9 mmol/L (3.4-5.0); Sodium 133 mmol/L (137-145)
[2024-02-11 08:16] LABS: Basophils Absolute Auto 0.1 K/mm3 (0.0-0.1); Basophils Percent Auto 0.7 % (0.2-1.2); Eosinophils Absolute Auto 0.2 K/mm3 (0-0.3); Eosinophils Percent Auto 2.1 % (0-4.4); Hematocrit 33.7 % (37.0-47.0); Hemoglobin 10.3 g/dL (12.0-15.0); Immature Granulocyte Absolute 0.02 K/mm3 (0.00-0.031); Immature Granulocyte Percent A 0.3 % (0-0.5); Mean Corpuscular HGB Conc 30.6 g/dl (32-36); Mean Corpuscular Hemoglobin 28.7 pg (26-34); Mean Corpuscular Volume 93.9 fl (80-100); Mean Platelet Volume 10.3 fl (7.4-10.4); Monocytes Absolute Auto 0.9 K/mm3 (0.1-0.6); Monocytes Percent Auto 12.2 % (2.6-8.5); Neutrophils Absolute Auto 3.9 K/mm3 (1.3-6.7); Neutrophils Percent Auto 50.7 % (45.5-73.1); Platelet Count Result 205 k/mm3 (150-375); Red Blood Count 3.59 M/mm3 (4.2-5.4); Red Cell Distribution Width 13.6 % (11.5-14.5); White Blood Count 7.6 K/mm3 (4.5-10.0)
[2024-02-11] MEDS: diazePAM (*CRX) 5 MG TABLET PO (08:19)
[2024-02-11] MEDS: ASCORBIC ACID 500 MG TABLET PO (08:19)
[2024-02-11] MEDS: FAMOTIDINE 20 MG TABLET PO ×2 (08:19→20:35)
[2024-02-11] MEDS: SENNA/DOCUSATE SODIUM TABLET 2 TAB PO ×2 (08:19→17:12)
[2024-02-11] MEDS: ASPIRIN 325 MG ENTERIC TABLET PO ×2 (08:19→20:35)
[2024-02-11] MEDS: polyethylene glycoL 3350 17 GM POWD.PACK PO (08:20)
[2024-02-11] MEDS: ceFAZolin 2 GM/D5W 50 ML 2 GM/50 ML BAG IVPB (08:22)
[2024-02-11 09:24] VITALS: BP 133/43; PULSE 75; RESP 16; TEMP 37.1; O2SAT 99
--- NOTE | 2024-02-11 09:24 | PM.PNORT ---
Progress Note: A&P Assessment and Plan (1) S/P total knee arthroplasty: Qualifiers: Laterality: right Qualified Code(s): Z96.651 - Presence of right artificial knee joint Code(s): Z96.659 - Presence of unspecified artificial knee joint Status: Acute Assessment and Plan: POD #1: Right TKA Continue PT/OT. WBAT. Walker. HIGH FALL RISK. Continue pain control. Ice Knee. Protect skin. DVT prophylaxis with Aspirin. SCDs. Incentive Spirometry Use reviewed. Monitor Dressing. Change prior to discharge. Bowel Regimen. Dispo: Home with Home Health pending progress with PT/OT Plan Reviewed history, exam, radiographs and current labs with attending MD and covering surgeon, Dr. Paige, who agrees with current plan as indicated above. No further recommendations from Dr. Paige at this time. Subjective Subjective Date/Time Seen: 02/11/24 09:24 Post Op day: 1 Interval history: POD #1: Right TKA Patient doing well. Muscle spasms this AM making it difficult to work with OT. Improved. Awaiting PT. No new concerns. Pain well controlled. Exam Const: General: comfortable and no acute distress Resp: Effort & Inspection: normal respiratory effort Cardio: Rate: regular rate Rhythm: regular rhythm GI: GI Palp: Yes Soft to palpation, No Tenderness to palpation present (GI) and No Guarding due to palpation present (GI) Skin: General skin exam: wounds noted Wounds: wounds noted Other: Incision c/d/i. No surrounding redness/warmth. No hematoma. Mild ecchymosis. No wound dehiscence Neuro: Cognition (Neuro): normal cognition Other: NV intact aside from block. Moves toes. Sensation intact to light touch. +ankle dorsiflexion/plantarflexion. Extrem: Right lower extremity: normal to inspection, knee Details: tenderness (diffuse, mild ) Location: of the patella, swelling (diffuse, consistent with surgical intervention ), abnormal ROM Details: pain with active ROM during, pain with passive ROM during and with range as follows (limited due to recent surgical intervention ); able to extend lower leg actively and ecchymosis (mild ), lower leg (Negative Haile's Sign ) Details: normal to inspection; no erythema and no tenderness, ankle (+ankle dorsiflexion/plantarflexion ) Details: normal to inspection, no edema and normal ROM; no tenderness, no swelling and no ecchymosis and foot Details: normal capillary refill, normal to inspection, vascular exam Details: dorsalis pedis pulse present and motor-sensory exam Details: light-touch normal; no tenderness Left lower extremity: normal to inspection Psych: Mental Status: mental status grossly normal Objective Data Vital Signs Vital Signs: Vital Signs - 24 hr 02/10/24 10:26 02/10/24 10:40 02/10/24 10:48 Temperature 37.3 C Pulse Rate 94 76 Respiratory Rate 19 12 Blood Pressure 133/74 149/66 H Pulse Oximetry 96 99 Oxygen Delivery Simple Face Mask Simple Face Mask Room Air Oxygen Flow Rate 6 6 02/10/24 10:55 02/10/24 11:10 02/10/24 11:25 Temperature Pulse Rate 79 69 66 Respiratory Rate 14 14 18 Blood Pressure 130/64 122/59 L 133/56 L Pulse Oximetry 94 93 97 Oxygen Delivery Room Air Room Air Nasal Cannula Oxygen Flow Rate 2 02/10/24 11:35 02/10/24 14:04 02/10/24 11:39 Temperature 36.0 C L Pulse Rate 66 65 Respiratory Rate 12 18 Blood Pressure 131/56 L 135/45 L Pulse Oximetry 99 99 Oxygen Delivery Nasal Cannula Room Air Oxygen Flow Rate 2 02/10/24 11:54 02/10/24 12:24 02/10/24 13:24 Temperature 36.2 C L 36.1 C L 36.2 C L Pulse Rate 66 63 68 Respiratory Rate 18 18 18 Blood Pressure 132/41 L 125/43 L 127/36 L Pulse Oximetry 98 97 18 L Oxygen Delivery Oxygen Flow Rate 02/10/24 17:24 02/10/24 21:07 02/11/24 00:54 Temperature 36.8 C 36.8 C 37.1 C Pulse Rate 67 70 71 Respiratory Rate 18 16 13 Blood Pressure 114/49 L 125/42 L 108/42 L Pulse Oximetry 96 99 97 Oxygen Delivery Oxygen Flow Rate
[2024-02-11 13:24] VITALS: BP 137/46; PULSE 81; RESP 16; TEMP 37.1; O2SAT 97
--- NOTE | 2024-02-11 13:53 | WPDANESPN ---
Anes - Prog Note Post-Op Date/Time: 02/11/24 13:53 Cardiovascular status: normal Respiratory status: normal Airway patency: baseline Mental status: baseline Post-Op hydration status: normal Vital Signs: Last Vital Signs Temp 37.1 C 02/11/24 09:24 Pulse 75 02/11/24 09:24 Resp 16 02/11/24 09:24 BP 133/43 L 02/11/24 09:24 Pulse Ox 99 02/11/24 09:24 O2 Del Method Room Air 02/11/24 08:20 O2 Flow Rate 2 02/10/24 11:35 Pain Score (VAS): 08/25 I/O: Intake & Output 02/10/24 02/11/24 02/11/24 23:59 07:59 15:59 Intake Total 290 50 530 Balance 290 50 530 Laboratory Tests 02/11/24 07:12 02/11/24 07:12 02/11/24 07:12 WBC 7.6 RBC 3.59 L Hgb 10.3 L D Hct 33.7 L MCV 93.9 MCH 28.7 MCHC 30.6 L RDW 13.6 Plt Count 205 MPV 10.3 Immature Gran % (Auto) 0.3 Neut % (Auto) 50.7 Lymph % (Auto) 34.0 [place] % (Auto) 12.2 H Eos % (Auto) 2.1 Baso % (Auto) 0.7 Lymph # (Auto) 2.60 [place] # (Auto) 0.9 H Eos # (Auto) 0.2 Baso # (Auto) 0.1 Abs Immat Gran (auto) 0.02 Absolute Neuts (auto) 3.9 Absolute Nucleated RBC 0.000 Nucleated RBC % 0.0 Sodium 133 L Potassium 3.9 Chloride 102 Carbon Dioxide 27 Anion Gap 4 BUN 18 H Creatinine 0.70 Estim Creat Clear Calc 82 Estimated GFR > 60 Glucose 110 Calcium 7.9 L Post-procedural complaints: none Patient Feedback: Patient satisfied with anesthetic care.
[2024-02-11 16:23] LABS: Anion Gap 3 mmol/L (4-12); Basophils Absolute Auto 0.1 K/mm3 (0.0-0.1); Basophils Percent Auto 0.9 % (0.2-1.2); Blood Urea Nitrogen 20 mg/dL (7-17); Calcium 7.9 mg/dL (8.4-10.2); Carbon Dioxide 30 mmol/L (22-30); Chloride 103 mmol/L (98-107); Eosinophils Absolute Auto 0.2 K/mm3 (0-0.3); Eosinophils Percent Auto 2.4 % (0-4.4); Estimated CRCL calculation 72 ml/min; Estimated Glomerular Filt Rate > 60; Glucose 119 mg/dL (65-110); Hematocrit 31.6 % (37.0-47.0); Hemoglobin 9.7 g/dL (12.0-15.0); Immature Granulocyte Absolute 0.02 K/mm3 (0.00-0.031); Immature Granulocyte Percent A 0.3 % (0-0.5); Lymphocytes Absolute Auto 1.65 K/mm3 (0.9-3.2); Lymphocytes Percent Auto 25.9 % (18.3-44.2); Mean Corpuscular HGB Conc 30.7 g/dl (32-36); Mean Corpuscular Volume 94.6 fl (80-100); Mean Platelet Volume 10.6 fl (7.4-10.4); Monocytes Absolute Auto 0.7 K/mm3 (0.1-0.6); Monocytes Percent Auto 11.6 % (2.6-8.5); Neutrophils Absolute Auto 3.8 K/mm3 (1.3-6.7); Neutrophils Percent Auto 58.9 % (45.5-73.1); Platelet Count Result 198 k/mm3 (150-375); Potassium 4.1 mmol/L (3.4-5.0); Red Blood Count 3.34 M/mm3 (4.2-5.4); Red Cell Distribution Width 13.5 % (11.5-14.5); Sodium 136 mmol/L (137-145); White Blood Count 6.4 K/mm3 (4.5-10.0)
[2024-02-11 20:36] VITALS: BP 130/51; PULSE 92; RESP 18; TEMP 37; O2SAT 98
[2024-02-11] MEDS: oxyCODONE/ACETAMINOPHEN (*CRX) 5-325 MG TABLET 1 TABLET PO (20:45)
[2024-02-12 05:44] VITALS: BP 139/54; PULSE 82; RESP 16; TEMP 36.8; O2SAT 98
[2024-02-12 08:00] VITALS: O2SAT 94
[2024-02-12] MEDS: SENNA/DOCUSATE SODIUM TABLET 2 TAB PO (08:16)
[2024-02-12] MEDS: ASPIRIN 325 MG ENTERIC TABLET PO (08:16)
[2024-02-12] MEDS: FAMOTIDINE 20 MG TABLET PO (08:16)
[2024-02-12] MEDS: ASCORBIC ACID 500 MG TABLET PO (08:16)
[2024-02-12] MEDS: polyethylene glycoL 3350 17 GM POWD.PACK PO (08:16)
[2024-02-12 08:44] VITALS: O2SAT 94
--- NOTE | 2024-02-12 09:08 | PM.PNORT ---
Progress Note: A&P Assessment and Plan (1) S/P total knee arthroplasty: Qualifiers: Laterality: right Qualified Code(s): Z96.651 - Presence of right artificial knee joint Code(s): Z96.659 - Presence of unspecified artificial knee joint Status: Acute Assessment and Plan: POD #2: Right TKA Continue PT/OT. WBAT. Walker. HIGH FALL RISK. Continue pain control. Ice Knee. Protect skin. DVT prophylaxis with Aspirin. SCDs. Incentive Spirometry Use reviewed. Monitor Dressing. Change prior to discharge. Bowel Regimen. Dispo: Home with Home Health pending progress with PT/OT Plan Reviewed history, exam, radiographs and current labs with attending MD and covering surgeon, Dr. Paige, who agrees with current plan as indicated above. No further recommendations from Dr. Paige at this time. Subjective Subjective Date/Time Seen: 02/12/24 09:08 Post Op day: 2 Interval history: POD #2: Right TKA Patient doing well. No new concerns. Pain well controlled. Hopeful for d/c today. Review of Systems Review of Systems: All systems reviewed & are unremarkable except as noted in HPI and below Exam Const: General: comfortable and no acute distress Resp: Effort & Inspection: normal respiratory effort Cardio: Rate: regular rate Rhythm: regular rhythm GI: GI Palp: Yes Soft to palpation, No Tenderness to palpation present (GI) and No Guarding due to palpation present (GI) Skin: General skin exam: wounds noted Wounds: wounds noted Other: Incision c/d/i. No surrounding redness/warmth. No hematoma. Mild ecchymosis. No wound dehiscence Neuro: Cognition (Neuro): normal cognition Other: NV intact aside from block. Moves toes. Sensation intact to light touch. +ankle dorsiflexion/plantarflexion. Extrem: Right lower extremity: normal to inspection, knee Details: tenderness (diffuse, mild ) Location: of the patella, swelling (diffuse, consistent with surgical intervention ), abnormal ROM Details: pain with active ROM during, pain with passive ROM during and with range as follows (limited due to recent surgical intervention ); able to extend lower leg actively and ecchymosis (mild ), lower leg (Negative Haile's Sign ) Details: normal to inspection; no erythema and no tenderness, ankle (+ankle dorsiflexion/plantarflexion ) Details: normal to inspection, no edema and normal ROM; no tenderness, no swelling and no ecchymosis and foot Details: normal capillary refill, normal to inspection, vascular exam Details: dorsalis pedis pulse present and motor-sensory exam Details: light-touch normal; no tenderness Left lower extremity: normal to inspection Psych: Mental Status: mental status grossly normal Objective Data Vital Signs Vital Signs: Vital Signs - 24 hr 02/11/24 09:24 02/11/24 13:24 02/11/24 20:36 Temperature 37.1 C 37.1 C 37.0 C Pulse Rate 75 81 92 Respiratory Rate 16 16 18 Blood Pressure 133/43 L 137/46 L 130/51 L Pulse Oximetry 99 97 98 Oxygen Delivery 02/11/24 20:00 02/12/24 05:44 02/12/24 08:44 Temperature 36.8 C Pulse Rate 82 Respiratory Rate 16 Blood Pressure 139/54 L Pulse Oximetry 98 94 Oxygen Delivery Room Air Room Air Intake/Output Intake/Output: Intake & Output 02/09/24 02/10/24 02/11/24 02/12/24 23:59 23:59 23:59 23:59 Intake Total 930 1370 490 Balance 930 1370 490 Meds/Results Medications: Active Medications Generic Name Dose Route Start Last Admin Trade Name Burakq PRN Reason Stop Dose Admin Acetaminophen 500 mg 02/10/24 11:39 Acetaminophen 500 Mg Tablet PO Q6H PRN Pain Rated 1-3 Ascorbic Acid 500 mg 02/10/24 11:39 02/12/24 08:16 Ascorbic Acid 500 Mg Tablet PO 500 mg DAILY JOSEPH Administration Aspirin 325 mg 02/10/24 11:39 02/12/24 08:16 Aspirin 325 Mg Enteric Tablet PO 325 mg Q12HR JOSEPH Administration Diazepam 5 mg 02/10/24 11:39 02/11/24 08:19 Diazepam (*Crx) 5 Mg Tablet PO 5 mg
--- NOTE | 2024-02-12 09:15 | PM.DS ---
DS: Admitting Diagnosis Discharge Date 02/12/2024 Admitting Diagnosis Right Knee DJD DS: Discharge Diagnosis Discharge Diagnosis (1) S/P total knee arthroplasty: Qualifiers: Laterality: right Qualified Code(s): Z96.651 - Presence of right artificial knee joint Code(s): Z96.659 - Presence of unspecified artificial knee joint Status: Acute Assessment and Plan: POD #2: Right TKA Continue PT/OT. WBAT. Walker. HIGH FALL RISK. Continue pain control. Ice Knee. Protect skin. DVT prophylaxis with Aspirin. SCDs. Incentive Spirometry Use reviewed. Monitor Dressing. Change prior to discharge. Bowel Regimen. Dispo: Home with Home Health pending progress with PT/OT Plan Reviewed history, exam, radiographs and current labs with attending MD and covering surgeon, Dr. Paige, who agrees with current plan as indicated above. No further recommendations from Dr. Paige at this time. DS: Summary Hospital Course Reason for hospitalization: Right TKA Hospital Course: 68 year old female admitted s/p Right TKA for postoperative medical management, pain control and mobilization with PT/OT. Patient progressed well with PT/OT. Pain and vitals remained stable throughout. The patient has been cleared to be discharged home with home health at this time. All discharge care instructions reviewed at depth. New medications reviewed. Follow up planned for 3 weeks in the outpatient orthopedic clinic with Dr. Paige. Will repeat BMP on Thursday to ensure continued improvement in Sodium Levels post op. Dr. Paige in agreement with safe discharge at this time. Status at Discharge Functional status at discharge: uses cane/walker Overall status at discharge: patient is progressing back to baseline Time Spent with Patient Time attestation: Total time spent providing and/or coordinating discharge services: Exam Const: General: comfortable and no acute distress Resp: Effort & Inspection: normal respiratory effort Cardio: Rate: regular rate Rhythm: regular rhythm Skin: General skin exam: wounds noted Wounds: wounds noted Other: Incision c/d/i. No surrounding redness/warmth. No hematoma. Mild ecchymosis. No wound dehiscence Neuro: Cognition (Neuro): normal cognition Other: NV intact aside from block. Moves toes. Sensation intact to light touch. +ankle dorsiflexion/plantarflexion. Extrem: Right lower extremity: normal to inspection, knee Details: tenderness (diffuse, mild ) Location: of the patella, swelling (diffuse, consistent with surgical intervention ), abnormal ROM Details: pain with active ROM during, pain with passive ROM during and with range as follows (limited due to recent surgical intervention ); able to extend lower leg actively and ecchymosis (mild ), lower leg (Negative Haile's Sign ) Details: normal to inspection; no erythema and no tenderness, ankle (+ankle dorsiflexion/plantarflexion ) Details: normal to inspection, no edema and normal ROM; no tenderness, no swelling and no ecchymosis and foot Details: normal capillary refill, normal to inspection, vascular exam Details: dorsalis pedis pulse present and motor-sensory exam Details: light-touch normal; no tenderness Left lower extremity: normal to inspection Psych: Mental Status: mental status grossly normal DS: Data Data Completed and Pending Labs on day of discharge: Labs from last 24 hours 02/11/24 15:47 WBC 6.4 RBC 3.34 L Hgb 9.7 L Hct 31.6 L MCV 94.6 MCH 29.0 MCHC 30.7 L RDW 13.5 Plt Count 198 MPV 10.6 H Immature Gran % (Auto) 0.3 Neut % (Auto) 58.9 Lymph % (Auto) 25.9 [place] % (Auto) 11.6 H Eos % (Auto) 2.4 Baso % (Auto) 0.9 Lymph # (Auto) 1.65 [place] # (Auto) 0.7 H Eos # (Auto) 0.2 Baso # (Auto) 0.1 Abs Immat Gran (auto) 0.02 Absolute Neuts (auto) 3.8 Absolute Nucleated RBC 0.000 Nucleated RBC % 0.0 Sodium 136 L Potassium 4.1 Chloride 103 Carbon Dioxide 30 Anion Gap 3 L BUN 20
[2024-02-12] MEDS: oxyCODONE/ACETAMINOPHEN (*CRX) 5-325 MG TABLET 1 TABLET PO (09:24)
[2024-02-12] MEDS: diazePAM (*CRX) 5 MG TABLET PO (12:16)
== END 2024-02-12 12:40 | disposition home health service (06) ==
LOC: ANHSURGERY 05:51 → ANH3MEDSUR 11:40
PROVIDERS: Nurse Practitioner Family; PCP Family Medicine; Visit Provider Orthopaedic Surgery
PROC: (CPT 27447; principal; 2024-02-10 07:30)
DX: M17.11 Unilateral primary osteoarthritis, right knee (principal); E78.00 Pure hypercholesterolemia, unspecified; E66.9 Obesity, unspecified; Z68.36 Body mass index [BMI] 36.0-36.9, adult
CPT/HCPCS: 27447; 36415; 73560; 80048; 80307; 82040; 83036; 85025; 85610; 85730; 86850; 86900; 86901; 87641; 97110; 97116; 97161; 97165; 97530; 97535; A9270; C1713; C1776; J0171; J0690; J1100; J1170; J1741; J1885; J2250; J2270; J2405; J2704; J2795; J3010; J7030; J7120

== ENCOUNTER 2024-02-15 11:23 | Outpatient (NON) | payer MEDICARE, SELFPAY ==
[2024-02-15 12:02] LABS: Anion Gap 8 mmol/L (4-12); Blood Urea Nitrogen 12 mg/dL (7-17); Calcium 8.3 mg/dL (8.4-10.2); Carbon Dioxide 26 mmol/L (22-30); Chloride 101 mmol/L (98-107); Estimated Glomerular Filt Rate > 60; Glucose 104 mg/dL (65-110); Potassium 3.9 mmol/L (3.4-5.0); Sodium 135 mmol/L (137-145)
== END 2024-02-15 11:24 | disposition home or self-care (01) ==
LOC: HOME HLTH 11:26
PROVIDERS: PCP Family Medicine; Visit Provider Nurse Practitioner Family
DX: Z47.1 Aftercare following joint replacement surgery (principal); Z96.651 Presence of right artificial knee joint
CPT/HCPCS: 80048

== ENCOUNTER 2024-04-18 11:00 | Outpatient (RCR) | payer MEDICARE, SELFPAY ==
--- NOTE | 2024-03-17 13:42 | OPREHPOC ---
Outpatient Therapy Plan of Care This is a Multidisciplinary Plan of Care that may contain components documented by all disciplines (PT, OT, and ST.) PT Problem 1 PT Problem #1 Knowledge Deficit PT Goal 1 Goal / Goal Update [place] with HEP Target Visit 4 PT Goal 2 Goal / Goal Update Report no pain consistency greater than a 2/10 Target Visit 4 PT Problem 2 PT Problem #2 Impaired Range of Motion PT Goal 1 Goal / Goal Update Patient will achieve consistent terminal knee extension on R LE Target Visit 10 PT Goal 2 Goal / Goal Update Patient will achieve 125 degrees of right knee flexion for improve foot clearance Target Visit 10 PT Goal 1 Goal / Goal Update 1. Improve R hip flexion strength to 4+/5 to improve foot clearance 2. Improve R hip abduction to 4/5 to improve lateral knee stability with gait Target Visit 10 PT Problem 4 PT Problem #4 Impaired Gait PT Goal 1 Goal / Goal Update Ambulate with even stride length bilaterally independent of AD Target Visit 10
--- NOTE | 2024-03-17 13:42 | PTOPEVAL1 ---
Assessment and note entered by Carlo Hines, PT Evaluation Information Assessment Status Evaluation Diagnosis S/P Right TKA ICD-10 Condition Codes (PT) M25.561 Onset 02/10/24 Subjective Information Reports that she finished up with home health last week and has since been discharged. From a pain perspective she feels she is doing well. She is uncomfortable with sleeping and having some numbness on the inside of the knee. She is getting some pins and needles pain on inside of the knee. She is currently using a cane but was independent prior. Reported Pain Level Pain Score 0: Self Report Assessment PT Clinical Summary Patient presents with signs and symptoms typical of post operative knee. Swelling noted with lack of full knee flexion limited to approximately 10 degrees at this time. Passive knee extension is good but not fully reflected in gait pattern. Will benefit form skilled therapy to continue to address these deficits for shelter strength and ROM improvement. Plan of Care Interventions Gait Training,Manual Therapy,Neuro Re-education, Therapeutic Activities,Therapeutic Exercise PT Services Indicated Yes Treatment Frequency and 2-3x/week for 10 visits Duration These treatments will address the objective and functional deficits as defined above. The patient will be advanced safely and appropriately in order for the patient to progress towards his/her prior level of function. Additional exercises will be introduced and as well as a comprehensive home exercise program upon discharge, if needed, ?to ensure carryover of functional gains achieved in the clinic. This treatment plan has been reviewed and agreement upon by the patient.
--- NOTE | 2024-03-30 13:27 | PCPTNOTE ---
Pt R/S today , not feeling well. AKS
--- NOTE | 2024-04-18 11:44 | PTOPDC ---
Assessment and note entered by Sherry Berg, PT Discharge Report Assessment Status Discharge Diagnosis S/P Right TKA ICD-10 Condition Codes (PT) M25.561 Onset 02/10/24 Subjective Information use the walker only when first wake up in the morning; then use the cane or nothing; am doing everything at home; doing OK on the stairs, if have to carry something, put it in a bag to carry; have been doing the exercises at home; see the dr in May-- for hip and knee. Ready to be finished with therapy. Reported Pain Level Pain Score Self Report Additional Pain Score Comments pain range in the past week 0-2/10; tight, stiff increase pain: when first wake up in AM decrease pain: move knee, ice have not had any tylenol in the past week; swelling is less- keep it elevated with sitting and elevate it Assessment PT Clinical Summary Priscila has received a total of 10 sessions. Compared to the initial evaluation: pain has decreased to 0-2/10; self assessment with LE functional scale rating from 55% to 23% limitation in activity level; R knee ROM (-10') to 110'; increase strength of R hip and knee; single leg standing x 4 seconds; ambulating with cane or no device, with slight limp R LE due to lack full knee extension; on stairs, indep with single step pattern and with one hand railing, alternate step pattern; education completed for HEP. The goals were partially met. Discharge PT services. She is to continue with her home exercises to increase activity and knee range of motion. Plan of Care PT Services Indicated No
== END 2024-04-18 13:37 | disposition home or self-care (01) ==
LOC: ANHPT 11:00
PROVIDERS: PCP Family Medicine; Visit Provider Orthopaedic Surgery
DX: Z47.1 Aftercare following joint replacement surgery (principal); M25.561 Pain in right knee; Z96.661 Presence of right artificial ankle joint
CPT/HCPCS: 97110; 97116; 97140; 97161; 97530

== ENCOUNTER 2024-06-03 10:59 | Outpatient (CLI) | payer MEDICARE, SELFPAY ==
--- NOTE | ~2024-06-03 | MM_ITS ---
EXAMINATION: MM screening [facility] BI w adia HISTORY: Screening TECHNIQUE: Craniocaudal and mediolateral oblique 3-D tomosynthesis images were obtained and synthetic 2-D images were generated. CAD analysis was submitted and interpreted. COMPARISON: Comparison to multiple prior studies sequentially, with oldest reviewed study dated 12/04. BREAST PARENCHYMAL COMPOSITION: Not dense: There are scattered areas of fibroglandular density. FINDINGS: There is a new cluster of calcifications in the lower inner quadrant of the left breast, mi ddle third. The right breast is stable without evidence for malignancy. IMPRESSION: 1. New cluster of left breast calcifications lower inner quadrant. 2. Magnification views are recommended. BI-RADS Category 0: Incomplete: Needs additional imaging evaluation. Reviewed, dictated and finalized at location A. INUOUS MINING MACHINE OPERATOR
== END 2024-06-03 11:00 | disposition home or self-care (01) ==
PROVIDERS: PCP Family Medicine; Visit Provider Family Medicine
DX: Z12.31 Encounter for screening mammogram for malignant neoplasm of breast (principal); R92.8 Other abnormal and inconclusive findings on diagnostic imaging of breast
CPT/HCPCS: 77063; 77067

== ENCOUNTER 2024-06-16 08:05 | Outpatient (CLI) | payer MEDICARE, SELFPAY ==
--- NOTE | ~2024-06-16 | MM_ITS ---
EXAMINATION: MM diagnostic [facility] LT w adia HISTORY: Follow-up clustered left breast calcifications TECHNIQUE: Additional 3-D tomosynthesis images of the left breast were performed and synthetic 2-D im ages were generated. CAD analysis was submitted and interpreted. COMPARISON: Comparison to multiple prior studies sequentially, with oldest reviewed study dated 12/04. BREAST PARENCHYMAL COMPOSITION: Not dense: There are scattered areas of fibroglandular density. FINDINGS: The clustered calcifications in the lower inner quadrant of the left breast have a pleomorp hic appearance. A few of these calcifications appear to layer on the medial lateral and MLO views, mo st likely benign milk of calcium. IMPRESSION: 1. Probable benign left breast calcifications. 2. Recommend 6 month follow-up diagnostic left mammogram BI-RADS category 3, probably benign findings. Reviewed, dictated and finalized at location A. MATIC GRINDER OPERATOR
== END 2024-06-16 08:06 | disposition home or self-care (01) ==
LOC: MICIMG 08:06
PROVIDERS: PCP Family Medicine; Visit Provider Family Medicine
DX: R92.8 Other abnormal and inconclusive findings on diagnostic imaging of breast (principal)
CPT/HCPCS: 77061; 77065; G0279

== ENCOUNTER 2024-12-20 08:22 | Outpatient (CLI) | payer MEDICARE, SELFPAY ==
--- NOTE | ~2024-12-20 | MM_ITS ---
EXAMINATION: MM diagnostic [facility] LT w adia INDICATION: 69-year old female; 6 month follow up cluster of microcalcifications in the lower inner left breast at posterior depth initially evaluated on 06/16/2024. COMPARISON: 06/03/2024 through 02/17/2014. TECHNIQUE: Left breast Digital breast tomosynthesis CC and MLO views and ML with magnification views in ML and CC of the left breast were obtained with computer-aided detection to assist in interpretati on of the study. FINDINGS: There are scattered areas of fibroglandular density. The cluster of microcalcifications of concern in the lower inner left breast centered at posterior de pth reidentified is Unchanged. No focal dominant mass, architectural distortion, or suspicious microc alcifications are identified. IMPRESSION: Probably benign calcifications in the lower inner left breast have demonstrated approxima tely 6 months stability since initial discovery. Recommendation: 6 month follow-up bilateral diagnostic mammography. BI-RADS 3, PROBABLY BENIGN Reviewed, dictated and finalized at location B. IMPRESSION: Probably benign calcifications in the lower inner left breast have demonstrated approximately 6 months stability since initial discovery. Recommendation: 6 month follow-up bilateral diagnostic mammography. BI-RADS 3, PROBABLY BENIGN
== END 2024-12-20 08:23 | disposition home or self-care (01) ==
LOC: MICIMG 08:22
PROVIDERS: PCP Family Medicine; Visit Provider Family Medicine
DX: R92.8 Other abnormal and inconclusive findings on diagnostic imaging of breast (principal)
CPT/HCPCS: 77061; 77065; G0279

== ENCOUNTER 2025-04-21 08:34 | Outpatient (CLI) | payer MEDICARE, SELFPAY ==
--- NOTE | ~2025-04-21 | DEXA_ITS ---
Bone Density Report Name: KAYLEE SOUZA Age: 69 Sex: Female Ethnicity: White Date of : 1955 Indication: postmenopausal; screening for osteoporosis; height loss; rheumatoid arthritis; Referring Provider: DEL HAWTHORNE Study: Bone densitometry was performed. Exam Date: April 21, 2025 Accession number: [id number] Bone Density: Region BMD T-score Z-score Classification AP Spine(L1-L4) 1.033 -0.1 2.1 Normal Femoral Neck (Right) 0.922 0.7 2.6 Normal Total Hip (Right) 0.800 -1.2 0.4 Osteopenia World Health Organization criteria for BMD impression classify patients as: Normal (T-score at or above -1.0), Osteopenia (T-score between -1.0 and -2.5), or Osteoporosis (T-score at or below -2.5). 10-year Fracture Risk(1): Major Osteoporotic Fracture 7.5% Hip Fracture 0.3% Reported Risk Factors: [place] (), Neck BMD=0.922, BMI=39.6, rheumatoid arthritis (1) FRAX(R) Version 3.08. Fracture probability calculated for an untreated patient. Fracture probability may be lower if the patient has received treatment. Previous Exams: -- Region Exam Age BMD T-score BMD Change BMD Change Date g/cm2 vs Baseline vs Previous -- AP Spine (L1-L4) 04/21/2025 69 1.033 -0.1 -4.0%# -1.3%# 02/07/2012 56 1.046 0.0 -2.8%# -2.8%# 03/20/2008 52 1.076 0.3 Total Hip(Right) 04/21/2025 69 0.800 -1.2 -26.5%# -22.6%# 02/07/2012 56 1.033 0.7 -5.0%* 1.1%# 03/20/2008 52 1.022 0.7 -6.0%# -6.0%# 03/18/2006 50 1.088 1.2 -- *Denotes significance at 95% confidence level, LSC for AP Spine = 0.022 g/cm2, LSC for Total Hip = 0.027 g/cm2 # Denotes dissimilar scan types or analysis methods Clinical Information Provided by Patient: Has rheumatoid arthritis Has used the following medications: Vitamin D, Calcium Patient maximum height was 69 Menopause Age: 50 No regular weight bearing exercise Does not regularly consume dairy products Drinks caffeinated beverages Onset of menses at age 7 Number of children 3 Impression: The patient has low bone mass, based on the Right Total Hip T-score. The patient has an estimated ten-year risk of hip fracture of 0.3% and an estimated ten-year risk of major fracture of 7.5%, based on the WHO FRAX algorithm. Unable to evaluate interval change due to the use of different scan modes. Discussion: BONE DENSITY IS LOW AT ONE OR MORE SKELETAL SITES. This patient's lowest T-score is low at one or more skeletal sites. It meets the World Health Organization's (WHO) criteria for ?low bone mass? (T-score between -1.0 and -2.5). The patient's 10-year risk of fracture as calculated by FRAX is less than the threshold where pharmacological therapy is recommended by the National Osteoporosis Foundation (NOF). However, all treatment decisions require clinical judgment and consideration of individual patient factors, including patient preferences, comorbidities, previous drug use, risk factors not captured in the FRAX model (e.g., frailty, falls, vitamin D deficiency, increased bone turnover, interval significant decline in bone density) and possible under or overestimation of fracture risk by FRAX. The patient should follow a healthful lifestyle (good nutrition with adequate calcium and vitamin D, and appropriate weight-bearing exercise). Follow-Up: Consider repeating this study in 2 to 3 years to reassess this patient's status, or sooner if there is some new clinical indication. Reported by: YAJAIRA on 04/21/2025 9:11:00 AM. Reviewed, dictated and finalized at location A.
== END 2025-04-21 08:35 | disposition home or self-care (01) ==
PROVIDERS: PCP Family Medicine
DX: Z78.0 Asymptomatic menopausal state (principal); M85.851 Other specified disorders of bone density and structure, right thigh
CPT/HCPCS: 77080